=== PATIENT | male | born 1975 | race Caucasian/White ===

== ENCOUNTER 2017-06-28 11:14 | Emergency (ER) | payer SELFPAY ==
[2017-06-28 11:25] VITALS: BP 108/74; PULSE 80; TEMP 98.2; BMI 27.4
--- NOTE | 2017-06-28 11:50 | PDOC ---
History of Present Illness - General Chief Complaint: Head/Neck problem Stated Complaint: PAIN/ NECK, HEAD Time Seen by Provider: 06/28/17 11:28 History Source: Patient Exam Limitations: No Limitations - History of Present Illness Initial Comments: 06/28/17 11:57 Best Contact: unk PCP: PMD in [place] Pmhx: Depression, hypertension, epilepsy, chronic low back pain, chronic left- sided neck pain due to an accident in [place] in 2010 Pshx: None Allergies: Penicillin/rash FH: Father: 62 years old Prostate CA, HNP lumbar/ mother: 63 years old, stomach CA Social Hx: Ciarettes/ 0 Alcohol/ 0 Drugs/0 LMP:n/a 41-year-old male presents to the ER complaining of his left sided chronic neck pain. Patient states pain is described as 7/10 dull nonradiating intermittent discomfort without extremity numbness or tingling sensation, headache, dizziness , lightheadedness, back pains, chest pain, shortness of breath. Patient states his pain is similar to his chronic neck pain. Patient states he had an injection for pain 2 months ago while in [place] which helped tremendously. Patient refuses images. patient is present in the emergency department with his father. Past History - Past Medical History Allergies/Adverse Reactions: Allergies Allergy/AdvReac Type Severity Reaction Status Date / Time No Known Allergies Allergy Verified 06/28/17 11:54 Home Medications: Ambulatory Orders Naproxen [Naprosyn -] 250 mg PO ONCE 06/28/17 Phenytoin Na Extended [Dilantin -] 100 mg PO DAILY 06/28/17 COPD: No Other medical history: denies - Immunization History Immunization Up to Date: Yes - Suicide/Smoking/Psychosocial Hx Smoking History: Never smoked Information on smoking cessation initiated: No Hx Alcohol Use: No Drug/Substance Use Hx: No Review of Systems - Review of Systems Able to Perform ROS?: Yes Comments:: 06/28/17 11:51 CONSTITUTIONAL: Absent: fever, chills, diaphoresis, generalized weakness, malaise, loss of appetite HEENT: Absent: rhinorrhea, nasal congestion, throat pain, throat swelling, difficulty swallowing, mouth swelling, ear pain, eye pain, visual Changes CARDIOVASCULAR: Absent: chest pain, loss of consciousness, palpitations, irregular heart rate, peripheral edema RESPIRATORY: Absent: cough, shortness of breath, dyspnea with exertion, orthopnea, wheezing, stridor, hemoptysis GASTROINTESTINAL: Absent: abdominal pain, abdominal distension, nausea, vomiting, diarrhea, constipation, melena, hematochezia GENITOURINARY: Absent: dysuria, frequency, urgency, hesitancy, hematuria, flank pain, genital pain MUSCULOSKELETAL: +left sided neck pain Absent: myalgia, arthralgia, joint swelling SKIN: Absent: rash, itching, pallor HEMATOLOGIC/IMMUNOLOGIC: Absent: easy bleeding, easy bruising, lymphadenopathy, frequent infections ENDOCRINE: Absent: unexplained weight gain, unexplained weight loss, heat intolerance, cold intolerance NEUROLOGIC: Absent: headache, focal weakness or paresthesias, dizziness, unsteady gait, seizure, mental status changes, bladder or bowel incontinence PSYCHIATRIC: Absent: anxiety, depression, suicidal or homicidal ideation, hallucinations. Is the patient limited Botswanan proficient: No *Physical Exam - Vital Signs Last Vital Signs Temp Pulse Resp BP Pulse Ox 98.2 F 80 20 108/74 96 06/28/17 11:21 06/28/17 11:21 06/28/17 11:21 06/28/17 11:21 06/28/17 11:21 - Physical Exam Comments: 06/28/17 11:51 GENERAL: Well developed, well nourished. Awake and alert. No acute distress. HEENT: Normocephalic, atraumatic. PERRLA, EOMI. No conjunctival pallor. Sclera are non- icteric. Moist mucous membranes. Oropharynx is clear. NECK: Supple. Full ROM. No JVD. Carotid pulses 2+ and symmetric, without bruits. No thyromegaly. No lymphadenopathy. CARDIOVASCULAR: Regular rate and rhythm. No murmurs, rubs, or gallops. Distal pulses are 2+ and symmetric. PULMONARY: No evidence of respiratory distress. Lungs clear to auscultation bilaterally. No wheezing, rales or rhonchi. ABDOMINAL: Soft. Non-tender. Non-distended. No rebound or guarding. No organomegaly. Normoactive bowel sounds. MUSCULOSKELETAL +Left sided neck pain Negative Brudzinski sign, negative Kernig's sign Normal range of motion at all joints. No bony deformities or tenderness. No CVA tenderness. EXTREMITIES: No cyanosis. No clubbing. No edema. No calf tenderness. SKIN: Warm and dry. Normal capillary refill. No rashes. No jaundice. NEUROLOGICAL: Alert, awake, appropriate. Cranial nerves 2-12 intact. No deficits to light touch and temperature in face, upper extremities and lower extremities. No motor deficits in the in face, upper extremities and lower extremities. Normoreflexic in the upper and lower extremities. Normal speech. Toes are down- going bilaterally. Gait is normal without ataxia. Medical Decision Making - Medical Decision Making 06/28/17 12:01 41-year-old male with a chronic left-sided neck discomfort presents to the ER requesting for pain medication. Patient states he had a pain injection 2 months ago while in [place]. Physical was benign. No Brudzinski or Kernig's sign. No fever or chills, nausea or vomiting. Patient will get Toradol IM injection. MB discharge when he feels better. *DC/Admit/Observation/Transfer Diagnosis at time of Disposition: Chronic neck pain - Discharge Dispostion Disposition: HOME Condition at time of disposition: Stable Decision to Admit order: No - Referrals Referrals: Pawel Dye MD [Staff Physician] - Feliciano Campbell MD [Staff Physician] - - Patient Instructions Printed Discharge Instructions: DI for Chronic Neck Pain Additional Instructions: Ice; 20 mins on alternating with 20 mins off for 48 hours while awake. Rest Follow-up with the orthopedic surgeon or the neurosurgeon/Dr. Dye Follow up with your orthopedic surgeon or the one listed on the discharge form. Return to the ER for severe/persistent/worsening symptoms, extremity numbness/ tingling sensation. - Post Discharge Activity
[2017-06-28] MEDS ORDERED: KETOROLAC TROMETHAMINE 60 MG/2 ML VIAL IM ONE (11:51)
== END 2017-06-28 12:26 | disposition home or self-care (01) ==
LOC: JERFT 11:14
PROC: 3E0233Z Introduction of Anti-inflammatory into Muscle, Percutaneous Approach (ICD-10-PCS; principal; 2017-06-28)
DX: M54.2 Cervicalgia (principal); G89.29 Other chronic pain
CPT/HCPCS: 99281-25

== ENCOUNTER 2018-04-18 16:05 | Emergency (ER) | payer OTHER ==
--- NOTE | 2018-04-18 16:19 | PDOC ---
Rapid Medical Evaluation Time Seen by Provider: 04/18/18 16:18 Medical Evaluation: Allergies Allergy/AdvReac Type Severity Reaction Status Date / Time Penicillins Allergy Verified 04/18/18 16:18 04/18/18 16:19 I have performed a brief in-person evaluation of this patient. The patient presents with a chief complaint of: right sided BROWN x45 minutes Pertinent physical exam findings: left sided facial droop. -drift. +slurred speech I have ordered the following: stroke w/u The patient will proceed to the ED for further evaluation. 04/18/18 16:28 Discharge Disposition - Diagnosis Headache - Referrals - Patient Instructions - Post Discharge Activity
[2018-04-18 16:26] VITALS: BMI 24.3
[2018-04-18] MEDS ORDERED: SODIUM CHLORIDE 1,000 ML IV SCH (16:30)
--- NOTE | 2018-04-18 16:56 | PDOC ---
History of Present Illness - General History Source: Patient Exam Limitations: No Limitations - History of Present Illness Initial Comments: 04/18/18 19:25 The patient is a 42-year-old male, with a past medical history of HTN, HLD, seizures, who presents to the ED with RT temporal headache that began 1 hour prior to arrival. The patient describes the pain as intermittent, burning in sensation, 6/10 in severity, with radiation down the right side of his face. The patient denies experiencing these symptoms in the past. While in the ED, nurse noticed that his speech was muffled, but he reports that is his baseline. The patient denies any fevers, chills, nausea, vomiting, diarrhea, or abdominal pain. The patient denies any chest pain or shortness of breath. Denies any vision changes, lightheadedness, dizziness, strength or sensory changes. Denies any vision changes or photophobia. Allergies: Penicillins Social History: Current smoker. <Noelle Ellison - Last Filed: 04/18/18 19:39> - General History Source: Patient Exam Limitations: No Limitations <Ernestine Coleman - Last Filed: 04/21/18 02:34> - General Chief Complaint: CVA/TIA Stated Complaint: HEADACHE Time Seen by Provider: 04/18/18 16:18 Past History <Noelle Ellison - Last Filed: 04/18/18 19:39> - Past Medical History COPD: No DVT: No HTN: Yes Psychiatric Problems: Yes (DEPRESSION,ANXIETY) Seizures: Yes - Immunization History Immunization Up to Date: Yes - Suicide/Smoking/Psychosocial Hx Smoking History: Never smoked Have you smoked in the past 12 months: Yes Number of Cigarettes Smoked Daily: 5 'Breaking Loose' booklet given: 08/04/17 Hx Alcohol Use: No Drug/Substance Use Hx: No Substance Use Type: None <Ernestine Coleman - Last Filed: 04/21/18 02:34> - Past Medical History Allergies/Adverse Reactions: Allergies Allergy/AdvReac Type Severity Reaction Status Date / Time Penicillins Allergy Verified 04/20/18 20:42 shellfish derived Allergy Verified 04/20/18 20:42 Home Medications: Ambulatory Orders Naproxen [Naprosyn -] 250 mg PO ASDIR 06/28/17 Phenytoin Na Extended [Dilantin -] 100 mg PO TID 06/28/17 Lisinopril 10 mg PO DAILY 10/14/17 Prednisone [Prednisone 50 MG TABLETS] 50 mg PO DAILY #4 tablet 04/20/18 Ranitidine HCl [Zantac] 150 mg PO BID #20 tablet 04/20/18 Review of Systems - Review of Systems Able to Perform ROS?: Yes Comments:: 04/18/18 19:30 GENERAL/CONSTITUTIONAL: No fever or chills. No weakness. HEAD, EYES, EARS, NOSE AND THROAT: No change in vision. No ear pain or discharge. No sore throat. CARDIOVASCULAR: No chest pain or shortness of breath. RESPIRATORY: No cough, wheezing, or hemoptysis. GASTROINTESTINAL: No nausea, vomiting, diarrhea or constipation. GENITOURINARY: No dysuria, frequency, or change in urination. MUSCULOSKELETAL: No joint or muscle swelling or pain. No neck or back pain. SKIN: No rash NEUROLOGIC: (+)Headache. No vertigo, loss of consciousness, or change in strength/sensation. ENDOCRINE: No increased thirst. No abnormal weight change. HEMATOLOGIC/LYMPHATIC: No anemia, easy bleeding, or history of blood clots. ALLERGIC/IMMUNOLOGIC: No hives or skin allergy. <Noelle Ellison - Last Filed: 04/18/18 19:39> *Physical Exam - Vital Signs Last Vital Signs Temp Pulse Resp BP Pulse Ox 98.4 F 67 16 121/87 99 04/18/18 19:01 04/18/18 19:01 04/18/18 19:01 04/18/18 19:01 04/18/18 19:01 - Physical Exam Comments: 04/18/18 19:32 GENERAL: (+)Speech is muffled, but patient states that is his baseline.The patient is in no acute distress. HEAD: Normal with no signs of trauma. EYES: PERRLA, EOMI, sclera anicteric, conjunctiva clear. ENT: Ears normal, nares patent, oropharynx clear without exudates. Moist mucous membranes. NECK: Normal range of motion, supple without lymphadenopathy, JVD, or masses. LUNGS: Breath sounds equal, clear to auscultation bilaterally. No wheezes, and no crackles. HEART:Regular rate and rhythm, normal S1 and S2 without murmur, rub or gallop. ABDOMEN: Soft, nontender, normoactive bowel sounds. No guarding, no rebound. No masses palpable. EXTREMITIES: Normal range of motion, no edema. No clubbing or cyanosis. No erythema, or tenderness. NEUROLOGICAL: [id number] normal. See NIHSS MUSCULOSKELETAL: Back non-tender to palpation, no CVA tenderness SKIN: Warm, Dry, normal turgor, no rashes or lesions noted. <Noelle Ellison - Last Filed: 04/18/18 19:39> - Vital Signs Last Vital Signs Temp Pulse Resp BP Pulse Ox 97.6 F 96 H 18 134/92 98 04/18/18 16:18 04/18/18 16:18 04/18/18 16:18 04/18/18 16:18 04/18/18 16:18 <Ernestine Coleman - Last Filed: 04/21/18 02:34> NIH Stroke Scale - Last Known Well Date/Time & Onset Date Last Known Well: 04/18/18 Time Last Known Well: 04:30 - Initial Evaluation Level of consciousness: Alert Ask patient the month and their age: Answers both correctly Ask patient to open & close eyes; make fist and let go: Obeys both correctly Best gaze (horizontal eye movement): Normal Visual field testing: No visual field loss Facial paresis (Show teeth/raise eyebrows/close eyes tight): Normal symmetrical movement Motor Function: Left Arm: Normal Motor Function: Right Arm: Normal (extends arm 90 (or 45) degrees for 10 seconds without drift Motor Function: Left Leg: Normal (extends leg 30 degrees for 5 seconds without drift) Motor Function: Right Leg: Drift (Elevating leg causes back pain) Limb Ataxia: No ataxia Sensory(Use pinprick test arms,legs,trunk,face/side to side): Normal Best language (Describe picture, name items, read sentences): No Aphasia Dysarthria (read several words): Mild to moderate slurring of words Extinction and Inattention: No abnormality - Total Score NIH Stroke Scale Score: 2 <Ernestine Coleman - Last Filed: 04/21/18 02:34> tPA Exclusion Checklist 0-3hr - Time Elapsed Date last known well: 04/18/18 Time last known well: 14:30 Elaspsed time: 2 Day(s) and 12 Hour(s) and 3 Minutes - Thrombolytic Therapy Candidate Is the patient eligible for Thrombolytic Therapy?: No - Exclusion Criteria 0-3hr SBP greater than 185 or DBP greater than 110mmHg despite tx: No Recent IC/spinal surgery,head trauma or stroke w/in last 3mo: No Hx of previous IC hemorrhage, IC neoplasm, AVM or aneurysm: No Active internal bleeding: No Blding diathesis(low plt ct, inc PTT,INR>1.7 or use of NOAC): No Symptoms suggest subarachnoid hemorrhage: No CT demonstrates multilobar infarct(>1/3 cerebral hemiphere): No Arterial puncture at noncompressible site in previous 7 days: No Blood glucose concentration less than 50mg/dL (2.7mmol/L): No - Relative Exclusion Criteria 0-3h Life expectancy <1yr/severe co-morbid illness/G[employer] MECH[employer]IC on admit: No : No Patient/family refused: No Rapid improvement: Yes Stroke severity too mild: Yes Recent acute PA (w/in previous 3 months): No Seizure at onset with postictal residual neuro impairments: No Major surgery or serious trauma w/in previous 14 days: No Recent GI or hemorrhage (w/in previous 21 days): No - Ineligibility reason(s) Reasons No tPA given: See reason(s) noted above <Ernestine Coleman - Last Filed: 04/21/18 02:34> TIA Risk Factors - ABCD Score Age: Age < 60 Blood Pressure: SBP < 140 and DBP < 90 Clinical Features of TIA: Uni wk w/wo speech impair Duration: TIA duration = or > 60min Diabetes: No Total ABCD2 Score (0-7):: 4 <Ernestine Coleman - Last Filed: 04/21/18 02:34> Moderate Sedation - Procedure Monitoring Vital Signs: Procedure Monitoring Vital Signs Temperature 98.4 F 04/18/18 19:01 Pulse Rate 67 04/18/18 19:01 Respiratory Rate 16 04/18/18 19:01 Blood Pressure 121/87 04/18/18 19:01 O2 Sat by Pulse Oximetry (%) 99 04/18/18 19:01 <Noelle Ellison - Last Filed: 04/18/18 19:39> - Procedure Monitoring Vital Signs: Procedure Monitoring Vital Signs Temperature 97.6 F 04/18/18 16:18 Pulse Rate 96 H 04/18/18 16:18 Respiratory Rate 18 04/18/18 16:18 Blood Pressure 134/92 04/18/18 16:18 O2 Sat by Pulse Oximetry (%) 98 04/18/18 16:18 <Ernestine Coleman - Last Filed: 04/21/18 02:34> Critical Care Time/MDM Note Total Critical Care Time: 35 Critical Care Statement: The care of this patient involved high complexity decision making to prevent further life threatening deterioration of the patient 's condition and/or to evaluate & treat vital organ system(s) failure or risk of failure. - Medical Decision Making Note: 04/18/18 17:50 42 yo M presenting to the ER due to headache Pt has a h/o epilepsy, HTN, HLD Pt reported sudden onset of right sided headache HE was thought to have slurred speech but pt states his speech is at his baseline He denies weakness or numbness Code Hernandez called CT performed 04/18/18 18:07 CT is still not read Call placed to radiologist Will do: Labs are still pending Will treat headache and re assess Case reviewed with Dr. Roger Recommends observation for TIA work up 04/18/18 18:14 CT read as negative for acute intracranial pathology 04/18/18 18:34 EKG - NSR rate of 77 bpm, axis nml, intervals nml, no st elevation or depression I have discussed admission with this patient At this time, he is refusing this 04/18/18 19:00 Laboratory Tests 04/18/18 04/18/18 18:25 18:25 WBC 9.1 Hgb 16.4 Hct 47.0 Plt Count 244 INR 0.93 Note: The patient insists on leaving the emergency dept and is signing out against medical advice. The patient understands the risks and complications that may result from the refusal of medical care and admission which includes and permanent disability. The patient has the mental capacity of understanding the risks of refusing care and is capable of making an informed decision. The patient was instructed to return to the emergency department should he change his mind regarding medical care or should his condition worsen. The patient signed the Against Medical Advice form. <Ernestine Coleman - Last Filed: 04/21/18 02:34> *DC/Admit/Observation/Transfer - Attestations Scribe Attestion: 04/18/18 19:32 Documentation prepared by Noelle Ellison, acting as auditor medical claims for Ernestine Coleman MD. <ScotNoelle - Last Filed: 04/18/18 19:39> - Discharge Dispostion Decision to Admit order: No <Ernestine Coleman - Last Filed: 04/21/18 02:34> Diagnosis at time of Disposition: Headache Qualifiers: Headache type: unspecified Headache chronicity pattern: unspecified pattern Intractability: not intractable Qualified Code(s): R51 - Headache - Discharge Dispostion Disposition: AGAINST MEDICAL ADVICE Condition at time of disposition: Fair - Referrals Referrals: Anibal Roger MD [Staff Physician] - Sin Muro MD [Staff Physician] - Maude Iyer MD [Staff Physician] - - Patient Instructions Printed Discharge Instructions: DI for Migraine, DI for Transient Ischemic Attack Additional Instructions: YOU ARE LEAVING AGAINST MEDICAL ADVISE WE DO NOT WANT YOU TO GO HOME YOU MUST SEE YOUR PRIMARY CARE PHYSICIAN WITHIN 1 DAY PLEASE RETURN TO THE ER BECAUSE WE WOULD LIKE TO MANAGE AND CARE FOR YOU
[2018-04-18] MEDS ORDERED: ACETAMINOPHEN 1000 MG/100 ML VIAL (NON FORMULARY) IVPB ONE (17:10)
[2018-04-18] MEDS ORDERED: METOCLOPRAMIDE HCL INJECTION 10 MG/2 ML VIAL IVPUSH ONE (17:10)
[2018-04-18] MEDS ORDERED: ACETAMINOPHEN INJECTION 100 ML IVPB ONE (17:50)
[2018-04-18] MEDS ORDERED: METOCLOPRAMIDE HCL INJECTION 10 MG/2 ML VIAL ONE (17:50)
[2018-04-18 18:42] LABS: BASO % 0.3 % (0-2.0); EOS % 2.6 % (0-4.5); HEMOGLOBIN 16.4 GM/dL (11.7-16.9); LYMPH % 24.4 % (8-40); MCH 32.2 pg (25.7-33.7); MCHC 34.8 g/dl (32.0-35.9); MEAN CELL VOLUME 92.5 fl (80-96); MEAN PLT VOLUME 9.3 fl (7.5-11.1); MONO % 6.2 % (3.8-10.2); NEUT % 66.5 % (42.8-82.8); PLATELET COUNT 244 K/MM3 (134-434); RBC 5.09 M/mm3 (4.00-5.60); RDW 13.8 % (11.9-15.9); WHITE BLOOD COUNT 9.1 K/mm3 (4.0-10.0)
[2018-04-18 18:56] LABS: INR 0.93 (0.83-1.09)
[2018-04-18 19:02] VITALS: BP 121/87; PULSE 67; TEMP 98.4
[2018-04-18 19:26] LABS: ALBUMIN 4.4 g/dl (3.4-5.0); ALK PHOS 107 U/L (45-117); ANION GAP 2 MMOL/L (8-16); BILIRUBIN,TOTAL 0.2 mg/dL (0.2-1); BLOOD UREA NITROGEN 16 mg/dL (7-18); CALCIUM 9.9 mg/dL (8.5-10.1); CHLORIDE 106 mmol/L (98-107); CHOLESTEROL 201 mg/dL (50-200); CO2 31 mmol/L (21-32); CREATININE 0.8 mg/dL (0.55-1.3); GLUCOSE,RANDOM 80 mg/dL (74-106); HDL CHOLESTEROL 52 mg/dL (40-60); POTASSIUM 4.8 mmol/L (3.5-5.1); SGOT/AST 39 U/L (15-37); SGPT/ALT 77 U/L (13-61); SODIUM 139 mmol/L (136-145); TOT PROT 7.8 g/dl (6.4-8.2); TRIGLYCERIDES 121 mg/dL (0-150)
--- NOTE | 2018-04-19 10:51 | EKG ---
Test Reason : Blood Pressure : / mmHG Vent. Rate : 077 BPM Atrial Rate : 077 BPM P-R Int : 150 ms QRS Dur : 090 ms QT Int : 378 ms P-R-T Axes : 056 003 047 degrees QTc Int : 427 ms NORMAL SINUS RHYTHM POSSIBLE LEFT ATRIAL ENLARGEMENT BORDERLINE ECG WHEN COMPARED WITH ECG OF 04-AUG-2017 18:24, NO SIGNIFICANT CHANGE WAS FOUND Confirmed by SALOMON LOPEZ MD ([id number]) on 04/19/2018 10:51:01 AM Referred By: Confirmed By:SALOMON LOPEZ MD
== END 2018-04-18 19:45 | disposition left against medical advice (07) ==
LOC: JER 16:05
PROC: 3E0337Z Introduction of Electrolytic and Water Balance Substance into Peripheral Vein, Percutaneous Approach (ICD-10-PCS; principal; 2018-04-18)
PROC: 3E0337Z Introduction of Electrolytic and Water Balance Substance into Peripheral Vein, Percutaneous Approach (ICD-10-PCS; 2018-04-18)
PROC: 3E033GC Introduction of Other Therapeutic Substance into Peripheral Vein, Percutaneous Approach (ICD-10-PCS; 2018-04-18)
PROC: 3E033NZ Introduction of Analgesics, Hypnotics, Sedatives into Peripheral Vein, Percutaneous Approach (ICD-10-PCS; 2018-04-18)
DX: R51 Headache (principal); I10 Essential (primary) hypertension; E78.00 Pure hypercholesterolemia, unspecified; G40.909 Epilepsy, unspecified, not intractable, without status epilepticus
CPT/HCPCS: 36415; 70450-TC; 80053; 82465; 82550; 83718; 83721; 84478; 84484; 85025; 85610; 93005; 93010; 99284-25; J0131; J7030

== ENCOUNTER 2018-04-20 20:35 | Emergency (ER) | payer OTHER ==
[2018-04-20 20:42] VITALS: BP 136/94; PULSE 104; TEMP 97.5; BMI 24.3
[2018-04-20] MEDS ORDERED: predniSONE 20 MG TABLET (UD) PO ONE (22:12)
--- NOTE | 2018-04-20 22:12 | PDOC ---
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 Patient reports that he has no rash, no difficulty breathing, no swelling. Patient does have a fish ALLERGY. Past medical history of seizures, arthritis, hypertension Past History - Past Medical History Allergies/Adverse Reactions: Allergies Allergy/AdvReac Type Severity Reaction Status Date / Time Penicillins Allergy Verified 04/20/18 20:42 shellfish derived Allergy Verified 04/20/18 20:42 Home Medications: Ambulatory Orders Naproxen [Naprosyn -] 250 mg PO ASDIR 06/28/17 Phenytoin Na Extended [Dilantin -] 100 mg PO TID 06/28/17 Lisinopril 10 mg PO DAILY 10/14/17 Prednisone [Prednisone 50 MG TABLETS] 50 mg PO DAILY #4 tablet 04/20/18 Ranitidine HCl [Zantac] 150 mg PO BID #20 tablet 04/20/18 COPD: No DVT: No HTN: Yes Psychiatric Problems: Yes (DEPRESSION,ANXIETY) Seizures: Yes - Immunization History Immunization Up to Date: Yes - Suicide/Smoking/Psychosocial Hx Smoking History: Never smoked Have you smoked in the past 12 months: Yes Number of Cigarettes Smoked Daily: 5 'Breaking Loose' booklet given: 08/04/17 Hx Alcohol Use: No Drug/Substance Use Hx: No Substance Use Type: None Review of Systems - Review of Systems Able to Perform ROS?: Yes Is the patient limited Hebrew proficient: No Respiratory: No: Symptoms reported, See HPI, Cough, Orthopnea, Shortness of Breath, SOB with Exertion, SOB at Rest, Stridor, Wheezing, Productive cough, Hemoptysis, Other Musculoskeletal: No: Symptoms Reported, See HPI, Back Pain, Gout, Joint Pain, Joint Swelling, Muscle Pain, Muscle Weakness, Neck Pain, Joint Stiffness, Other Integumentary: Yes: Pruritus. No: Symptoms Reported, See HPI, Bruising, Change in Color, Change in Hair/Nails, Dryness, Erythema, Flushing, Lesions, Lumps, Pallor, Rash, Sweating, Other *Physical Exam - Vital Signs Last Vital Signs Temp Pulse Resp BP Pulse Ox 97.5 F L 104 H 18 136/94 97 04/20/18 20:38 04/20/18 20:38 04/20/18 20:38 04/20/18 20:38 04/20/18 20:38 - Physical Exam General Appearance: Yes: Appropriately Dressed HEENT: positive: Normal ENT Inspection Respiratory/Chest: positive: Lungs Clear, Normal Breath Sounds Cardiovascular: positive: Regular Rhythm, Regular Rate Gastrointestinal/Abdominal: positive: Normal Bowel Sounds, Soft Extremity: positive: Normal Capillary Refill, Normal Inspection, Normal Range of Motion Integumentary: positive: Normal Color, Dry, Warm. negative: Hives, Rash Neurologic: positive: Fully Oriented, Alert Moderate Sedation - Procedure Monitoring Vital Signs: Procedure Monitoring Vital Signs Temperature 97.5 F L 04/20/18 20:38 Pulse Rate 104 H 04/20/18 20:38 Respiratory Rate 18 04/20/18 20:38 Blood Pressure 136/94 04/20/18 20:38 O2 Sat by Pulse Oximetry (%) 97 04/20/18 20:38 Medical Decision Making - Medical Decision Making 04/20/18 22:51 allergic reaction P: benadryl prednisone zantac *DC/Admit/Observation/Transfer Diagnosis at time of Disposition: Allergic reaction Qualifiers: Encounter type: initial encounter Qualified Code(s): T78.40XA - Allergy, unspecified, initial encounter - Discharge Dispostion Disposition: HOME - Prescriptions Prescriptions: Prednisone [Prednisone 50 MG TABLETS] 50 mg PO DAILY #4 tablet Ranitidine HCl [Zantac] 150 mg PO BID #20 tablet - Referrals - Patient Instructions Printed Discharge Instructions: DI for General Allergic Reactions Additional Instructions: take prednisone tomorrow as prescribed follow up with your doctor as soon as possible return to the ER if symptoms worsen. - Post Discharge Activity Forms/Work/School Notes: Back to Work
[2018-04-20] MEDS ORDERED: RANITIDINE HCL 150 MG TABLET (FP) PO ONE (22:13)
[2018-04-20] MEDS ORDERED: RANITIDINE HCL 150 MG TABLET (FP) ONE (22:33)
[2018-04-20] MEDS ORDERED: predniSONE 20 MG TABLET (UD) ONE (22:34)
== END 2018-04-20 23:09 | disposition home or self-care (01) ==
LOC: JERFT 20:35
PROC: 3E023GC Introduction of Other Therapeutic Substance into Muscle, Percutaneous Approach (ICD-10-PCS; principal; 2018-04-20)
DX: T78.1XXA Other adverse food reactions, not elsewhere classified, initial encounter (principal); L29.8 Other pruritus; X58.XXXA Exposure to other specified factors, initial encounter; Z91.013 Allergy to seafood
CPT/HCPCS: 96372; 99281-25

== ENCOUNTER 2018-04-24 11:05 | Emergency (ER) | payer OTHER ==
[2018-04-24 11:50] VITALS: BP 146/82; PULSE 90; TEMP 97.7; BMI 24.3
--- NOTE | 2018-04-24 12:13 | PDOC ---
History of Present Illness - General Chief Complaint: Psychiatric Stated Complaint: RASH ALL OVER/ NERVOUSNESS Time Seen by Provider: 04/24/18 12:04 History Source: Patient Past History - Past Medical History Allergies/Adverse Reactions: Allergies Allergy/AdvReac Type Severity Reaction Status Date / Time Penicillins Allergy Verified 04/24/18 11:43 shellfish derived Allergy Verified 04/24/18 11:43 Home Medications: Ambulatory Orders Phenytoin Na Extended [Dilantin -] 100 mg PO TID 06/28/17 Lisinopril 10 mg PO DAILY 10/14/17 Prednisone [Prednisone 50 MG TABLETS] 50 mg PO DAILY #4 tablet 04/20/18 Ranitidine HCl [Zantac] 150 mg PO BID #20 tablet 04/20/18 Loratadine [Claritin] 10 mg PO DAILY #20 tablet 04/24/18 Permethrin 5% Topical Cream [Elimite -] 1 applic TP ONCE #1 tube 04/24/18 COPD: No DVT: No HTN: Yes Psychiatric Problems: Yes (DEPRESSION,ANXIETY) Seizures: Yes - Immunization History Immunization Up to Date: Yes - Suicide/Smoking/Psychosocial Hx Smoking History: Unknown if ever smoked Have you smoked in the past 12 months: Yes Number of Cigarettes Smoked Daily: 5 'Breaking Loose' booklet given: 08/04/17 Hx Alcohol Use: No Drug/Substance Use Hx: No Substance Use Type: None Review of Systems - Review of Systems Constitutional: No: Chills, Fever Respiratory: No: Shortness of Breath, Wheezing Cardiac (ROS): No: Chest Pain Integumentary: Yes: Pruritus, Rash Psychiatric: Yes: Anxiety *Physical Exam - Vital Signs Last Vital Signs Temp Pulse Resp BP Pulse Ox 97.7 F 90 18 146/82 99 04/24/18 11:45 04/24/18 11:45 04/24/18 11:45 04/24/18 11:45 04/24/18 11:45 - Physical Exam General Appearance: Yes: Appropriately Dressed. No: Apparent Distress HEENT: positive: Normal Voice Neck: positive: Supple Respiratory/Chest: negative: Respiratory Distress Integumentary: positive: Dry, Warm, Rash (scattered non-descript, erythematous pinpoint macules to dorsum of hand and face) Neurologic: positive: Fully Oriented, Alert, Normal Mood/Affect Moderate Sedation - Procedure Monitoring Vital Signs: Procedure Monitoring Vital Signs Temperature 97.7 F 04/24/18 11:45 Pulse Rate 90 04/24/18 11:45 Respiratory Rate 18 04/24/18 11:45 Blood Pressure 146/82 04/24/18 11:45 O2 Sat by Pulse Oximetry (%) 99 04/24/18 11:45 Medical Decision Making - Medical Decision Making 04/24/18 12:06 42 yo male, HTN, HLD, depression/anxiety, on meds but has no psychiatrist here w / planes. Patient states for the past 3 days, he's had pruritic rash to face and upper extremity. Seen in ED 5 days ago when pt was also complaining of pruritic rash after eating fish 2 days prior, but denied any fish allergy. Patient was sent home on prednisone and zantac. Took meds w/ no relief per patient. Also taking Benadryl with not much improvement. Denies any allergy or obvious inciting factors. No sick contacts or recent travel. Patient also complaining that he felt anxious last night. Has been taking his medication, but has been lost to follow-up with psychiatry. No depressed mood at this time and denies SI or HI See exam Rash ? allergic vs scabies, no e/o serious pathology S/p recent course of prednisone, zantac and benadryl w/ no relief -will dc / scabies and derm f/u Anxiety H/o same On meds but lost to f/u In NAD in ED Denies SI/HI -will dc w/ psych referral *DC/Admit/Observation/Transfer Diagnosis at time of Disposition: Dermatitis, Anxiety - Discharge Dispostion Disposition: HOME Condition at time of disposition: Good - Prescriptions Prescriptions: Loratadine [Claritin] 10 mg PO DAILY #20 tablet Permethrin 5% Topical Cream [Elimite -] 1 applic TP ONCE #1 tube - Referrals Referrals: Doreen Doll MD [Staff Physician] - Perico Fernandez MD [Staff Physician] - - Patient Instructions Printed Discharge Instructions: DI for Rash Additional Instructions: La causa de buenrostro erupcin no est georg[place] en lorne momento. Podra ser causado por ady reaccin alrgica o sarna. Usted fue tratado por ambos. Use medicamentos segn las indicaciones. Si los sntomas no se resuelven, landon un seguimiento con el Dr. Doll de dermatologa. Respecto a buenrostro ansiedad, por favor landon un seguimiento con el Dr. Fernandez de psiquiatra y contine con zeus medicamentos. Print Language: GRENADIAN - Post Discharge Activity
== END 2018-04-24 12:56 | disposition home or self-care (01) ==
LOC: JER 11:05
DX: L30.9 Dermatitis, unspecified (principal); B86 Scabies; F41.9 Anxiety disorder, unspecified
CPT/HCPCS: 99282-25

== ENCOUNTER 2018-09-01 13:59 | Emergency (ER) | payer OTHER | END 2018-09-01 15:16 | disposition home or self-care (01) | LOC: JERFT 13:59 ==

== ENCOUNTER 2018-11-06 10:01 | Emergency (ER) | payer OTHER ==
[2018-11-06 10:20] VITALS: BP 121/76; PULSE 86; TEMP 98.7; BMI 23.4
[2018-11-06] MEDS ORDERED: DEXAMETHASONE LIQUID 0.5 MG/5 ML PO ONE (11:44)
--- NOTE | 2018-11-06 11:49 | PDOC ---
History of Present Illness - General Chief Complaint: Pain Stated Complaint: PAIN Time Seen by Provider: 11/06/18 10:51 History Source: Patient Exam Limitations: Language Barrier ([employer] used. [id number]) Past History - Travel Traveled outside of the country in the last 30 days: No Close contact w/someone who was outside of country & ill: No - Past Medical History Allergies/Adverse Reactions: Allergies Allergy/AdvReac Type Severity Reaction Status Date / Time Penicillins Allergy Verified 11/06/18 10:20 shellfish derived Allergy Verified 11/06/18 10:20 Home Medications: Ambulatory Orders Phenytoin Na Extended [Dilantin -] 100 mg PO TID 06/28/17 Lisinopril 10 mg PO DAILY 10/14/17 Loratadine [Claritin] 10 mg PO DAILY #20 tablet 04/24/18 Cyclobenzaprine HCl [Flexeril -] 10 mg PO HS #10 tablet 09/01/18 Methylprednisolone [Medrol Dose Michael] 4 mg PO ASDIR #21 tablet 09/01/18 Cyclobenzaprine HCl [Flexeril -] 10 mg PO HS #10 tablet 11/06/18 Methylprednisolone [Medrol Dose Michael] 4 mg PO ASDIR #21 tablet 11/06/18 COPD: No DVT: No HTN: Yes Psychiatric Problems: Yes (DEPRESSION,ANXIETY) Seizures: Yes - Immunization History Immunization Up to Date: Yes - Psycho Social/Smoking Cessation Hx Smoking History: Current every day smoker Have you smoked in the past 12 months: Yes Number of Cigarettes Smoked Daily: 12 Information on smoking cessation initiated: Yes 'Breaking Loose' booklet given: 08/04/17 Hx Alcohol Use: No Drug/Substance Use Hx: No Substance Use Type: None Review of Systems - Review of Systems Able to Perform ROS?: Yes Comments:: 11/06/18 11:42 CONSTITUTIONAL: Absent: fever, chills, diaphoresis, generalized weakness, malaise, loss of appetite HEENT: Absent: rhinorrhea, nasal congestion, throat pain, throat swelling, difficulty swallowing, mouth swelling, ear pain, eye pain, visual Changes CARDIOVASCULAR: Absent: chest pain, loss of consciousness, palpitations, irregular heart rate, peripheral edema RESPIRATORY: Absent: cough, shortness of breath, dyspnea with exertion, orthopnea, wheezing, stridor, hemoptysis GASTROINTESTINAL: Absent: abdominal pain, abdominal distension, nausea, vomiting, diarrhea, constipation, melena, hematochezia GENITOURINARY: Absent: dysuria, frequency, urgency, hesitancy, hematuria, flank pain, genital pain MUSCULOSKELETAL: Present: L arm pain Absent: myalgia, arthralgia, joint swelling SKIN: Absent: rash, itching, pallor HEMATOLOGIC/IMMUNOLOGIC: Absent: easy bleeding, easy bruising, lymphadenopathy, frequent infections ENDOCRINE: Absent: unexplained weight gain, unexplained weight loss, heat intolerance, cold intolerance NEUROLOGIC: Absent: headache, focal weakness or paresthesias, dizziness, unsteady gait, seizure, mental status changes, bladder or bowel incontinence PSYCHIATRIC: Absent: anxiety, depression, suicidal or homicidal ideation, hallucinations. Is the patient limited Romanian proficient: No *Physical Exam - Vital Signs Last Vital Signs Temp Pulse Resp BP Pulse Ox 98.7 F 86 17 121/76 95 11/06/18 10:16 11/06/18 10:16 11/06/18 10:16 11/06/18 10:16 11/06/18 10:16 - Physical Exam Comments: 11/06/18 11:43 GENERAL: The patient is awake, alert, and fully oriented, in no acute distress. HEAD: Normal with no signs of trauma. EYES: Pupils equal, round and reactive to light, extraocular movements intact, sclera anicteric, conjunctiva clear. EXTREMITIES: Pain with passive range of motion of the L arm after 90 degrees in all directions. (-) drop arm test. No TTP of the cervical paraspinous muscles. PMS intact of the L arm. Normal range of motion at all other joints, no edema. NEUROLOGICAL: Normal speech, normal gait. PSYCH: Normal mood, normal affect. SKIN: Warm, Dry, normal turgor, no rashes or lesions noted. Medical Decision Making - Medical Decision Making 11/06/18 16:13 The patient is a 43-year-old male who presents to the ER today for left arm pain. He states that his symptoms of been going on for 2 weeks. He states that he went to an urgent care 3 days ago where they did x-rays and they were negative. He was prescribed Toradol at that time. He states he is still having pain in the left arm and he can't move it. Denies fevers, chills, neck pain, numbness and tingling and weakness to the affected extremity. Patient is right- hand dominant. A/P: Shoulder impingement On exam pain with active and passive range of motion past 90. Negative drop arm test. Patient denies trauma or falling. He reports negative x-rays done 3 days ago. Patient seen with similar symptoms 2 months ago in the ER, possible cervical radiculopathy versus shoulder impingement. Given today symptoms with no neck pain more likely shoulder impingement Patient placed in sling, steroids and Flexeril given Discharge home with sling and orthopedic follow-up. Patient understands the plan and that he needs to follow up with orthopedics for further management of his symptoms. I discussed the physical exam findings, ancillary test results and final diagnoses with the patient. I answered all of the patient's questions. The patient was satisfied with the care received and felt comfortable with the discharge plan and treatment plan. The Patient agrees to follow up with the primary care physician/specialist within 24-72 hours. Return precautions were given. Discharge - Discharge Information Problems reviewed: Yes Clinical Impression/Diagnosis: Left arm pain Condition: Stable Disposition: HOME - Admission No - Additional Discharge Information Prescriptions: Cyclobenzaprine HCl [Flexeril -] 10 mg PO HS #10 tablet Methylprednisolone [Medrol Dose Michael] 4 mg PO ASDIR #21 tablet - Follow up/Referral Referrals: Israel Taylor [Primary Care Provider] - Yousif Arce MD [Staff Physician] - - Patient Discharge Instructions Patient Printed Discharge Instructions: DI for Arm Pain Additional Instructions: You were evaluated for your arm pain today I suspect you may have a nerve impingement in your shoulder Please follow up with orthopedics for further evaluation this week. (Dr. Arce ) Take the steroids as directed starting tomorrow Take the flexeril at night. Do not drink or drive after taking this medication as it may make you drowsy Return to the ER for any new or worsening symptoms Usted fue evaluado por buenrostro dolor en el brazo hoy Sospecho que puede tener ady afectacin nerviosa en el hombro Gerald un seguimiento con ortopedia para ady evaluacin adicional esta semana. ( Dr. Arce) [place] los esteroides segn las indicaciones a partir de maana. Lois el flexeril por la noche. No daina ni maneje despus de karyn lorne medicamento, ya que puede causar somnolencia. Regrese a la anyi de emergencias por cualquier sntoma nuevo o que empeore Print Language: TAMAZIGHT - Post Discharge Activity
[2018-11-06] MEDS ORDERED: DEXAMETHASONE SOD PHOSPHATE 10 MG/1 ML VIAL ONE (11:50)
== END 2018-11-06 11:59 | disposition home or self-care (01) ==
LOC: JERFT 10:01
DX: M79.602 Pain in left arm (principal); I10 Essential (primary) hypertension; G40.909 Epilepsy, unspecified, not intractable, without status epilepticus; F41.9 Anxiety disorder, unspecified; F32.9 Major depressive disorder, single episode, unspecified; F17.210 Nicotine dependence, cigarettes, uncomplicated; Z88.0 Allergy status to penicillin; Z91.013 Allergy to seafood
CPT/HCPCS: 99282-25

== ENCOUNTER 2019-02-24 18:37 | Emergency (ER) | payer OTHER ==
[2019-02-24 18:44] VITALS: TEMP 97.9; BMI 22.8
--- NOTE | 2019-02-24 19:18 | PDOC ---
History of Present Illness - General Chief Complaint: Weakness Stated Complaint: LEFT SIDE WEEKNESS Exam Limitations: Language Barrier ([employer] used) - History of Present Illness Initial Comments: The pt is a 43M w/ a history of seizure d/o, HTN, HLD, anxiety, and chronic LUE/ BLE pain who presents for evaluation of 2-3 days of dizziness and 'skin hotness' . He describes the dizziness at lightheadedness that is constant and non- positional. It is associated with a BROWN that is global, gradual onset, waxing/ waning, moderately relieved by OTC meds, and not exacerbated by anything he can identify. He states that his whole body feels hot but is unable to further qualify the sensation. He denies every having felt this before. He denies fevers, vision changes, N/V/C/D, chest pain, trouble breathing, dysuria, hematuria He reports being compliant with his medications at home but does not recall what they all are. Of note, his left lower facial droop is reported as chronic and he has seen no change in the last 2 days 02/24/19 19:55 Past History - Past Medical History Allergies/Adverse Reactions: Allergies Allergy/AdvReac Type Severity Reaction Status Date / Time Penicillins Allergy Verified 02/24/19 18:43 shellfish derived Allergy Verified 02/24/19 18:43 Home Medications: Ambulatory Orders Phenytoin Na Extended [Dilantin -] 100 mg PO TID 06/28/17 Lisinopril 10 mg PO DAILY 10/14/17 Loratadine [Claritin] 10 mg PO DAILY #20 tablet 04/24/18 Cyclobenzaprine HCl [Flexeril -] 10 mg PO HS #10 tablet 09/01/18 Methylprednisolone [Medrol Dose Michael] 4 mg PO ASDIR #21 tablet 09/01/18 Cyclobenzaprine HCl [Flexeril -] 10 mg PO HS #10 tablet 11/06/18 Methylprednisolone [Medrol Dose Michael] 4 mg PO ASDIR #21 tablet 11/06/18 Meclizine HCl [Antivert -] 25 mg PO QID #28 tablet 02/24/19 COPD: No DVT: No HTN: Yes Psychiatric Problems: Yes (DEPRESSION,ANXIETY) Seizures: Yes - Immunization History Immunization Up to Date: Yes - Psycho Social/Smoking Cessation Hx Smoking History: Current every day smoker Have you smoked in the past 12 months: Yes Number of Cigarettes Smoked Daily: 12 Information on smoking cessation initiated: No 'Breaking Loose' booklet given: 08/04/17 Hx Alcohol Use: No Drug/Substance Use Hx: No Substance Use Type: None Review of Systems - Review of Systems Able to Perform ROS?: Yes Comments:: GENERAL/CONSTITUTIONAL: No fever or chills HEAD, EYES, EARS, NOSE AND THROAT: No change in vision. No change in hearing. No sore throat CARDIOVASCULAR: No chest pain or shortness of breath RESPIRATORY: Denies cough, hemoptysis GASTROINTESTINAL: No nausea, vomiting, diarrhea or constipation GENITOURINARY: No dysuria, frequency, or change in urination MUSCULOSKELETAL: +Acute on chronic diffuse extremity pain SKIN: No rash NEUROLOGIC: No loss of consciousness, or change in strength/sensation ENDOCRINE: No increased thirst. No abnormal weight change HEMATOLOGIC/LYMPHATIC: No anemia, easy bleeding, or history of blood clots ALLERGIC/IMMUNOLOGIC: No hives or skin allergy 02/24/19 19:18 Is the patient limited Hebrew proficient: Yes *Physical Exam - Vital Signs Last Vital Signs Temp Pulse Resp BP Pulse Ox 97.9 F 101 H 20 167/107 H 99 02/24/19 18:39 02/24/19 18:39 02/24/19 18:39 02/24/19 18:39 02/24/19 18:39 - Physical Exam GENERAL: Awake, alert, and oriented to person/place/time, in no acute distress HEAD: No signs of trauma, normoc ephalic, atraumatic EYES: PERRLA, EOMI, sclera anicteric, conjunctiva clear ENT: Hearing grossly normal, nares patent, oropharynx clear without exudates. Moist mucosa LUNGS: No distress, speaks in full sentences, clear to auscultation bilaterally HEART: Regular rate and rhythm, normal S1 and S2, no murmurs appreciated, peripheral pulses normal and equal bilaterally ABDOMEN: Soft, nontender, normoactive bowel sounds. No guarding, no rebound EXTREMITIES: Normal inspection, Normal range of motion, no edema. No clubbing or cyanosis NEUROLOGICAL: Cranial nerves II through XII grossly intact. Left lower facial droop, normal annunciation and word finding, sensation to light touch intact throughout and equal b/l face/extremities, strength intact throughout, pt unable to straight leg raise b/l legs 2/2 pain that is worse today than usual SKIN: Warm, Dry 02/24/19 19:18 ED Treatment Course - LABORATORY CBC & Chemistry Diagram: 02/24/19 20:10 02/24/19 20:10 - ADDITIONAL ORDERS Additional order review: Laboratory Results 02/24/19 18:49 POC Glucometer 96 02/24/19 18:49 POC Glucometer 96 - RADIOLOGY Radiograph Interpretation: THIS IS A PRELIMINARY REPORT FROM [facility] EXAM: CT head without contrast DATE OF EXAM: 2019-02-24 21:46:36 FINDINGS: The brain parenchyma demonstrates normal attenuation without focal mass or mass effect. The ventricles are not enlarged. No acute intracranial hemorrhage or acute infarction The visualized aspect of the paranasal sinuses and mastoid air cells are unremarkable. No acute fracture 02/24/19 22:19 Medical Decision Making - Medical Decision Making The pt is a 43M w/ a history of seizure d/o, HTN, HLD, anxiety, and chronic LUE/ BLE pain who presents for evaluation of 2-3 days of dizziness and 'skin hotness' . ED Course CMP, CBC, Trop I ECG CXR CT head w/o Ofirmev, IVF, Benadryl, Reglan 02/24/19 20:02 ECG w/ NSR; HR 96; QTc 462; no TWI; evidence of LVH; no REBECCA; abn ECG CXR w/o acute pathology CT head w/o acute pathology Labs and imaging discussed w/ patient Symptoms likely related to viral illness Pt feels improved s/p meds Plan for D/C w/ PCP f/u Discharge instructions and return precautions given Patient in agreement and verbalized understanding Dispo: Home 02/24/19 22:19 Discharge - Discharge Information Problems reviewed: Yes Clinical Impression/Diagnosis: Lightheadedness, Viral syndrome Condition: Stable Disposition: HOME - Admission No - Additional Discharge Information Prescriptions: Meclizine HCl [Antivert -] 25 mg PO QID #28 tablet - Follow up/Referral Referrals: Israel Taylor [Primary Care Provider] - - Patient Discharge Instructions Patient Printed Discharge Instructions: DI for Viral Syndrome Additional Instructions: You were seen in the Emergency Department for evaluation of cough. Your symptoms are likely related to a virus and will likely self resolve within a week. Review the handout provided at discharge. Be sure to frequently wash your hands. Avoid close contact with young children, elderly, or weak immune system. Follow up with your primary care doctor within a week. Return to the Emergency Department if you develop fevers despite Tylenol/ Ibuprofen use, lethargy, confusion, inability to tolerate fluids, vomiting, blood in stool, worsening symptoms, or any new/concerning symptoms. Lo vieron en el departamento de emergencias para evaluar la tos. Es probable que zeus sntomas estn relacionados con un virus y es probable que se resuelvan en ady semana. Revise el folleto proporcionado al yaneth. Asegrese de lavarse las perez con frecuencia. Evite el contacto cercano con nios pequeos, ancianos o un sistema inmunitario dbil. Gerald un seguimiento con buenrostro mdico de atencin primaria dentro de ady semana. Regrese al Departamento de Emergencias si desarrolla fiebre a pesar del uso de Tylenol / Ibuprofeno, letargo, confusin, incapacidad para tolerar lquidos, vmitos, hanna en las heces, empeoramiento de los sntomas o cualquier sntoma nuevo o preocupante. Print Language: MONGOLIAN - Post Discharge Activity Work/Back to School Note: Back to Work
[2019-02-24] MEDS ORDERED: METOCLOPRAMIDE HCL INJECTION 10 MG/2 ML VIAL IVPB ONE (19:52)
[2019-02-24] MEDS ORDERED: ACETAMINOPHEN 1000 MG/100 ML VIAL (NON FORMULARY) IVPB ONE (19:52)
[2019-02-24] MEDS ORDERED: SODIUM CHLORIDE 0.9% 500 ML INFUS.BAG IV ONE (19:52)
--- NOTE | 2019-02-24 20:05 | PDOC ---
Attending Attestation - Resident Resident Name: Memo Duncan - ED Attending Attestation I have performed the following: I have examined & evaluated the patient, The case was reviewed & discussed with the resident, I agree w/resident's findings & plan - HPI HPI: 02/24/19 21:26 Pt comes with dizziness that is strong. Pt has positional dizziness. He has never had this in the past. He has nystagmus when he looks to the left and the right. He states that he is eating normally and though not sleeping well, he has no N/V/D and he has no systemic symptoms. He is compliant with all his meds. He takes his BP meds and his seizure meds as he is supposed to. He states that he has had a dry mouth recently - Physicial Exam PE: 02/24/19 21:28 Normal neuro exam Pt has no fever; subjectively warm and flushed Pt has clear lungs and normal heart [id number] Pt has no abd pain and no flank pain Rash on his chest and samll red 1mm macules sparse on legs and arms; no rash on the palms - Medical Decision Making 02/24/19 21:25 Labs are normal; LFTs are elevated. This is likely due to viral illness, which is causing the small red rash on chest and neck and that is resulting in [place] Palsy and causing vertiginous symptoms. 02/24/19 22:16 Patient Name: CAMILO CHAPMAN THIS IS A PRELIMINARY REPORT FROM [facility] EXAM: CT head without contrast IMAGES: 234 DATE OF EXAM: 2019-02-24 21:46:36 REASON FOR EXAM: Dizziness COMPARISON: None. FINDINGS: The brain parenchyma demonstrates normal attenuation without focal mass or mass effect. The ventricles are not enlarged. No acute intracranial hemorrhage or acute infarction. The visualized aspect of the paranasal sinuses and mastoid air cells are unremarkable. No acute fracture. 02/24/19 22:23 Pt will be sent home with meclizine He is feeling better
[2019-02-24] MEDS ORDERED: METOCLOPRAMIDE HCL INJECTION 10 MG/2 ML VIAL ONE (20:23)
[2019-02-24] MEDS ORDERED: ACETAMINOPHEN INJECTION 100 ML IVPB ONE (20:23)
[2019-02-24 20:29] LABS: BASO % 0.6 % (0-2.0); EOS % 1.6 % (0-4.5); HEMOGLOBIN 15.7 GM/dL (11.7-16.9); LYMPH % 22.1 % (8-40); MCH 30.9 pg (25.7-33.7); MCHC 34.2 g/dl (32.0-35.9); MEAN CELL VOLUME 90.4 fl (80-96); MEAN PLT VOLUME 9.3 fl (7.5-11.1); MONO % 5.8 % (3.8-10.2); NEUT % 69.9 % (42.8-82.8); PLATELET COUNT 222 K/MM3 (134-434); RBC 5.09 M/mm3 (4.00-5.60); RDW 13.7 % (11.9-15.9); WHITE BLOOD COUNT 8.6 K/mm3 (4.0-10.0)
[2019-02-24] MEDS ORDERED: LISINOPRIL 20 MG TABLET (FP) PO ONE (20:37)
[2019-02-24] MEDS ORDERED: FOLIC ACID INJECTION - 1 MG, THIAMINE HCL 100 MG, MULTIVIT INJECTION ADULT 10 ML in SOD... IVPB ONE (20:38)
[2019-02-24] MEDS ORDERED: MECLIZINE HCL 25 MG TABLET (FP) PO ONE (20:39)
[2019-02-24] MEDS ORDERED: MECLIZINE HCL 25 MG TABLET (FP) ONE (20:48)
[2019-02-24] MEDS ORDERED: LISINOPRIL 20 MG TABLET (FP) ONE (20:48)
[2019-02-24 21:04] LABS: ALBUMIN 4.2 g/dl (3.4-5.0); BILIRUBIN,TOTAL 0.8 mg/dL (0.2-1); BLOOD UREA NITROGEN 20.1 mg/dL (7-18); CALCIUM 9.3 mg/dL (8.5-10.1); CREATININE 0.9 mg/dL (0.55-1.3); POTASSIUM 4.4 mmol/L (3.5-5.1); TOT PROT 7.2 g/dl (6.4-8.2)
[2019-02-25 01:29] VITALS: BP 131/94; PULSE 91
--- NOTE | 2019-02-25 09:59 | EKG ---
Test Reason : Blood Pressure : / mmHG Vent. Rate : 096 BPM Atrial Rate : 096 BPM P-R Int : 172 ms QRS Dur : 102 ms QT Int : 366 ms P-R-T Axes : 050 -15 052 degrees QTc Int : 462 ms NORMAL SINUS RHYTHM POSSIBLE LEFT ATRIAL ENLARGEMENT LEFT VENTRICULAR HYPERTROPHY ABNORMAL ECG WHEN COMPARED WITH ECG OF 18-APR-2018 18:13, NO SIGNIFICANT CHANGE WAS FOUND Confirmed by ZAC GOODE MD ([id number]) on 02/25/2019 9:58:54 AM Referred By: Confirmed By:ZAC GOODE MD
== END 2019-02-24 23:15 | disposition home or self-care (01) ==
LOC: JER 18:37
PROC: 3E033NZ Introduction of Analgesics, Hypnotics, Sedatives into Peripheral Vein, Percutaneous Approach (ICD-10-PCS; principal; 2019-02-24)
PROC: 3E033GC Introduction of Other Therapeutic Substance into Peripheral Vein, Percutaneous Approach (ICD-10-PCS; 2019-02-24)
PROC: 3E033GC Introduction of Other Therapeutic Substance into Peripheral Vein, Percutaneous Approach (ICD-10-PCS; 2019-02-24)
DX: B34.9 Viral infection, unspecified (principal); I10 Essential (primary) hypertension; E78.5 Hyperlipidemia, unspecified; F41.8 Other specified anxiety disorders; F32.9 Major depressive disorder, single episode, unspecified; F17.210 Nicotine dependence, cigarettes, uncomplicated; Z88.0 Allergy status to penicillin; Z91.013 Allergy to seafood
CPT/HCPCS: 36415; 70450-TC; 71045-TC-FY; 80053; 82962; 84484; 85025; 93005; 93010; 96374; 96375; 99283-25; J0131; J7030

== ENCOUNTER 2019-02-27 14:30 | Inpatient (IN) | payer OTHER ==
--- NOTE | 2019-02-27 14:53 | PDOC ---
NIH Stroke Scale - Initial Evaluation Level of consciousness: Alert Ask patient the month and their age: Answers both correctly Ask patient to open & close eyes; make fist and let go: Obeys both correctly Best gaze (horizontal eye movement): Normal Visual field testing: No visual field loss Facial paresis (Show teeth/raise eyebrows/close eyes tight): Minor paralysis ( flattened nasolabial fold, asymmetry on smiling) Motor Function: Left Arm: Normal Motor Function: Right Arm: Normal (extends arm 90 (or 45) degrees for 10 seconds without drift Motor Function: Left Leg: Normal (extends leg 30 degrees for 5 seconds without drift) Motor Function: Right Leg: Normal (extends leg 30 degrees for 5 seconds without drift) Limb Ataxia: No ataxia Sensory(Use pinprick test arms,legs,trunk,face/side to side): Normal Best language (Describe picture, name items, read sentences): No Aphasia Dysarthria (read several words): Mild to moderate slurring of words Extinction and Inattention: No abnormality - Total Score NIH Stroke Scale Score: 2
[2019-02-27] MEDS ORDERED: levETIRAcetam 500 MG/5 ML INJECTION VIAL IVPB ONE ×2 (15:02→15:08)
--- NOTE | 2019-02-27 15:06 | PDOC ---
History of Present Illness - General Chief Complaint: Seizure Stated Complaint: R/O STROKE Time Seen by Provider: 02/27/19 15:00 - History of Present Illness Initial Comments: The pt is a 43M w/ a history of seizure d/o, HTN, HLD, anxiety, and chronic LUE/ BLE pain who presents for evaluation s/p seizure at approximately 1410 that lasted for about 5 minutes. The pt's father reports general tonic-clonic features that resolved spontaneously. He states that he has been compliant with his medications. He denies fevers/chills, vision changes, chest pain, trouble breathing, abdominal pain, N/V/V/D, dysuria, hematuria, or changes in sensation. 02/27/19 15:05 NIH Stroke Scale - Last Known Well Date/Time & Onset Date Last Known Well: 02/27/19 Time Last Known Well: 12:00 - Initial Evaluation Level of consciousness: Alert Ask patient the month and their age: Answers both correctly Ask patient to open & close eyes; make fist and let go: Obeys both correctly Best gaze (horizontal eye movement): Normal Visual field testing: No visual field loss Facial paresis (Show teeth/raise eyebrows/close eyes tight): Partial paralysis ( total or near paralysis of lower face) (reported as chronic) Motor Function: Left Arm: Normal Motor Function: Right Arm: Normal (extends arm 90 (or 45) degrees for 10 seconds without drift Motor Function: Left Leg: Normal (extends leg 30 degrees for 5 seconds without drift) Motor Function: Right Leg: Normal (extends leg 30 degrees for 5 seconds without drift) Limb Ataxia: No ataxia Sensory(Use pinprick test arms,legs,trunk,face/side to side): Normal Best language (Describe picture, name items, read sentences): No Aphasia Dysarthria (read several words): Mild to moderate slurring of words Extinction and Inattention: No abnormality - Total Score NIH Stroke Scale Score: 3 Past History - Past Medical History Allergies/Adverse Reactions: Allergies Allergy/AdvReac Type Severity Reaction Status Date / Time Penicillins Allergy Verified 02/24/19 18:43 shellfish derived Allergy Verified 02/24/19 18:43 Home Medications: Ambulatory Orders Phenytoin Na Extended [Dilantin -] 100 mg PO TID 06/28/17 Lisinopril 10 mg PO DAILY 10/14/17 Loratadine [Claritin] 10 mg PO DAILY #20 tablet 04/24/18 Methylprednisolone [Medrol Dose Michael] 4 mg PO ASDIR #21 tablet 09/01/18 Cyclobenzaprine HCl [Flexeril -] 10 mg PO HS #10 tablet 11/06/18 Meclizine HCl [Antivert -] 25 mg PO QID #28 tablet 02/24/19 COPD: No DVT: No HTN: Yes Psychiatric Problems: Yes (DEPRESSION,ANXIETY) Seizures: Yes - Immunization History Immunization Up to Date: Yes - Psycho Social/Smoking Cessation Hx Smoking History: Current every day smoker Have you smoked in the past 12 months: Yes Number of Cigarettes Smoked Daily: 12 'Breaking Loose' booklet given: 08/04/17 Hx Alcohol Use: No Drug/Substance Use Hx: No Substance Use Type: None Review of Systems - Review of Systems Able to Perform ROS?: Yes Comments:: GENERAL/CONSTITUTIONAL: No fever or chills. No weakness HEAD, EYES, EARS, NOSE AND THROAT: No change in vision. No change in hearing. No sore throat CARDIOVASCULAR: No chest pain or shortness of breath RESPIRATORY: Denies cough, hemoptysis GASTROINTESTINAL: No nausea, vomiting, diarrhea or constipation GENITOURINARY: No dysuria, frequency, or change in urination MUSCULOSKELETAL: No joint or muscle swelling or pain. No neck or back pain SKIN: No rash NEUROLOGIC: No headache, vertigo, or change in strength/sensation ENDOCRINE: No increased thirst. No abnormal weight change HEMATOLOGIC/LYMPHATIC: No anemia, easy bleeding, or history of blood clots ALLERGIC/IMMUNOLOGIC: No hives or skin allergy 02/27/19 15:05 Is the patient limited Gabonese proficient: No *Physical Exam - Physical Exam GENERAL: Awake, alert, and oriented to person/place/time, in no acute distress HEAD: No signs of trauma, normoc ephalic, atraumatic EYES: PERRLA, EOMI, sclera anicteric, conjunctiva clear ENT: Hearing grossly normal, nares patent, oropharynx clear without exudates. No uvular deviation. Moist mucosa LUNGS: No distress, speaks in full sentences, clear to auscultation bilaterally HEART: Regular rate and rhythm, normal S1 and S2, no murmurs appreciated, peripheral pulses normal and equal bilaterally ABDOMEN: Soft, nontender, normoactive bowel sounds. No guarding, no rebound EXTREMITIES: Normal inspection, Normal range of motion, no edema. No clubbing or cyanosis NEUROLOGICAL: Cranial nerves II through XII grossly intact. Sensation to light touch intact throughout; no drift in any extremities SKIN: Warm, Dry 02/27/19 15:08 ED Treatment Course - LABORATORY CBC & Chemistry Diagram: 02/27/19 14:50 02/27/19 14:50 - RADIOLOGY Radiograph Interpretation: CT/HEAD CT (STROKE) Rule out stroke CT scan of the brain without intravenous contrast. No prior is available for comparison There is minimal volume loss in the high convexity which is nonspecific. The ventricles are slightly prominent. Basal cisterns appear unremarkable. No mass lesion, gross acute infarct or intracranial hemorrhage are identified. Visualized paranasal sinuses and mastoid air cells are well-aerated. The calvarium is intact. Impression: No evidence of a focal intracranial lesion or hemorrhage seen. No gross acute infarct is identified. Case discussed with Dr. Camp, emergency room attending physician 02/27/19 15:20 Medical Decision Making - Medical Decision Making The pt is a 43M w/ a history of seizure d/o, HTN, HLD, anxiety, and chronic LUE/ BLE pain who presents for evaluation s/p witnessed seizure at approximately 1410 that lasted for about 5 minutes. Pt also reports intermittent tongue ' feeling weird' and worse slurring of speech. Concern for TIA/CVA, breakthrough seizure, Joel's paralysis ED Course CT head w/o acute pathology No leukocytosis No anemia Lytes unremarkable LFTs wnl Trop I neg Keppra 1g IV once given Consult order placed for Cardiology Plan for admission for further evaluation of new onset neurological symptoms Discharge - Discharge Information Problems reviewed: Yes Clinical Impression/Diagnosis: Seizure, TIA (transient ischemic attack) Condition: Stable - Admission Yes - Follow up/Referral Referrals: Israel Taylor [Primary Care Provider] - - Patient Discharge Instructions - Post Discharge Activity
[2019-02-27] MEDS: SODIUM CHLORIDE 1,000 ML IV SCH (15:16)
[2019-02-27 15:42] LABS: BASO % 1.1 % (0-2.0); EOS % 4.2 % (0-4.5); HEMATOCRIT 46.6 % (35.4-49); HEMOGLOBIN 15.8 GM/dL (11.7-16.9); LYMPH % 29.9 % (8-40); MCHC 33.8 g/dl (32.0-35.9); MEAN CELL VOLUME 91.6 fl (80-96); MONO % 6.7 % (3.8-10.2); NEUT % 58.1 % (42.8-82.8); PLATELET COUNT 226 K/MM3 (134-434); RBC 5.09 M/mm3 (4.00-5.60); RDW 13.8 % (11.9-15.9); WHITE BLOOD COUNT 6.1 K/mm3 (4.0-10.0)
[2019-02-27 15:54] LABS: INR 0.94 (0.83-1.09); PROTHROMBIN TIME (PATIENT) 11.1 SEC (9.7-13.0)
[2019-02-27 15:57] LABS: ACTIVATED PTT 29.4 SECONDS (25.2-36.5)
--- NOTE | 2019-02-27 15:57 | EKG ---
Test Reason : Blood Pressure : / mmHG Vent. Rate : 090 BPM Atrial Rate : 090 BPM P-R Int : 158 ms QRS Dur : 098 ms QT Int : 354 ms P-R-T Axes : 052 -15 046 degrees QTc Int : 433 ms NORMAL SINUS RHYTHM POSSIBLE LEFT ATRIAL ENLARGEMENT BORDERLINE ECG WHEN COMPARED WITH ECG OF 24-FEB-2019 18:55, NO SIGNIFICANT CHANGE WAS FOUND Confirmed by MEGAN MORELAND MD ([id number]) on 02/27/2019 3:56:38 PM Referred By: Confirmed By:MEGAN MORELAND MD
[2019-02-27 16:14] LABS: ALK PHOS 116 U/L (45-117); ANION GAP 3 MMOL/L (8-16); BILIRUBIN,TOTAL 0.4 mg/dL (0.2-1); BLOOD UREA NITROGEN 12.5 mg/dL (7-18); CALCIUM 9.4 mg/dL (8.5-10.1); CHLORIDE 104 mmol/L (98-107); CHOLESTEROL 197 mg/dL (50-200); CO2 31 mmol/L (21-32); CREATININE 0.9 mg/dL (0.55-1.3); GLUCOSE,RANDOM 83 mg/dL (74-106); HDL CHOLESTEROL 63 mg/dL (40-60); LDL CHOLESTEROL (ONLY SJRH) 103 mg/dL (5-100); POTASSIUM 4.7 mmol/L (3.5-5.1); SGOT/AST 25 U/L (15-37); SGPT/ALT 47 U/L (13-61); SODIUM 138 mmol/L (136-145); TOT PROT 7.3 g/dl (6.4-8.2); TRIGLYCERIDES 111 mg/dL (0-150)
--- NOTE | 2019-02-27 17:04 | PDOC ---
Documentation entered by Lacy Vergara SCRIBE, acting as scribe for Ernestine Coleman MD. Ernestine Coleman MD: This documentation has been prepared by the Ursula chester Adrianna, SCRIBE, under my direction and personally reviewed by me in its entirety. I confirm that the documentation accurately reflects all work, treatment, procedures, and medical decision making performed by me. Attending Attestation - Resident Resident Name: Memo Duncan - ED Attending Attestation I have performed the following: I have examined & evaluated the patient, The case was reviewed & discussed with the resident, I agree w/resident's findings & plan, Exceptions are as noted - HPI HPI: The patient is a 43 year old male, with a significant PMH of seizure disorder, HTN, HLD, anxiety, and chronic LUE/BLE pain, who presents to the ED for evaluation s/p seizure. Patient had a general tonic clonic seizure earlier today , which lasted for approximately 5 minutes before it self-resolved. This is his second seizure in two days. He has been compliant with his daily medications. Patient reports that his tongue felt like it fell asleep, he is struggling to speak, his eyes feel heavy, and his voice does not sound normal, but notes this sensation is progressively getting better. While in the ED, patient reports feeling dizzy, his face is hot, and his LLE is weak. Allergies: Shellfish, penicillins Surgical History: None reported Social History: Current everyday smoker (12 cigarettes per day). PCP: Dr. Taylor - Physicial Exam PE: 02/27/19 17:00 GENERAL: Awake, alert, and oriented to person/place/time, in no acute distress HEAD: No signs of trauma, normocephalic, atraumatic EYES: PERRLA, EOMI, sclera anicteric, conjunctiva clear ENT: Hearing grossly normal, nares patent, oropharynx clear without exudates. No uvular deviation. Moist mucosa LUNGS: No distress, speaks in full sentences, clear to auscultation bilaterally HEART: Regular rate and rhythm, normal S1 and S2, no murmurs appreciated, peripheral pulses normal and equal bilaterally ABDOMEN: Soft, nontender, normoactive bowel sounds. EXTREMITIES: Normal inspection, Normal range of motion, no edema. NEUROLOGICAL: Cranial nerves II through XII grossly intact, there is left-sided flattening of the nasolabial fold Patient speech seems slurred to me Sensation to light touch intact throughout; no drift in any extremities, patient is able to hold both hands and both legs up against gravity with no difficulty SKIN: Warm, Dry 02/27/19 17:00 02/27/19 17:03 - Medical Decision Making 02/27/19 17:01 43-year-old male presenting to the emergency department status post seizure at approximately 1410 that lasted for about 5 minutes. He is noted to have slurring of his speech, and reports that his tongue feels weird Differential diagnosis: TIA/CVA, breakthrough seizure, Joel's paralysis EKG: Normal sinus rhythm, rate of 90 bpm, axis is normal, intervals are normal, no ST elevation or depression 02/27/19 17:01 Laboratory Tests 02/27/19 02/27/19 02/27/19 14:50 14:50 14:50 WBC 6.1 Hgb 15.8 Hct 46.6 Plt Count 226 BUN 12.5 Creatinine 0.9 Creatine Kinase 100 Troponin I < 0.02 Phenytoin 31.5 Clinical impression: Recurrent seizure 02/27/19 17:[address] head w/o acute pathology No leukocytosis No anemia Lytes unremarkable LFTs wnl Trop I neg Keppra 1g IV once given Consult order placed for Cardiology Plan for admission for further evaluation of new onset neurological symptoms
[2019-02-27 17:54] LABS: PH,URINE 6.5 (5.0-8.0); URINE APPEARANCE CLEAR; URINE BILIRUBIN NEGATIVE (NEGATIVE); URINE COLOR YELLOW; URINE GLUCOSE (UA) NEGATIVE (NEGATIVE); URINE KETONE NEGATIVE (NEGATIVE); URINE LEUK ESTERASE NEGATIVE (NEGATIVE); URINE NITRITE NEGATIVE (NEGATIVE); URINE PROTEIN NEGATIVE (NEGATIVE); URINE UROBILINOGEN 0.2 mg/dL (0.2-1.0)
--- NOTE | 2019-02-27 18:40 | CON.NEURO ---
Consult - Alcohol/Substance Use Hx Alcohol Use: No - Smoking History Smoking history: Current every day smoker Have you smoked in the past 12 months: Yes Aproximately how many cigarettes per day: 12 Home Medications - Allergies Allergies/Adverse Reactions: Allergies Allergy/AdvReac Type Severity Reaction Status Date / Time Penicillins Allergy Verified 02/24/19 18:43 shellfish derived Allergy Verified 02/24/19 18:43 - Home Medications Home Medications: Ambulatory Orders Phenytoin Na Extended [Dilantin -] 100 mg PO TID 06/28/17 Lisinopril 10 mg PO DAILY 10/14/17 Loratadine [Claritin] 10 mg PO DAILY #20 tablet 04/24/18 Methylprednisolone [Medrol Dose Michael] 4 mg PO ASDIR #21 tablet 09/01/18 Cyclobenzaprine HCl [Flexeril -] 10 mg PO HS #10 tablet 11/06/18 Meclizine HCl [Antivert -] 25 mg PO QID #28 tablet 02/24/19 Physical Exam-Neuro Vital Signs: Vital Signs Temperature 98.7 F 02/27/19 14:35 Pulse Rate 91 H 02/27/19 14:35 Respiratory Rate 20 02/27/19 14:35 Blood Pressure 146/89 02/27/19 14:35 O2 Sat by Pulse Oximetry (%) 98 02/27/19 14:35 Labs: CBC, BMP 02/27/19 14:50 02/27/19 14:50 Assessment/Plan CC breakthrough seizure HPI 43 year old male history of htn, anxiety, hld, epilepsy. HE has been on dilantin 100 mg po tid and had generalzied tonic clonic seizure and resolved. [place]ilo has ct head it is unremarkable. He has left facial palsy. he denies any other focal neurologica symptoms. his dilantin level were 31. His nih score was 3 at admission PMH as above Allergies/Adverse Reactions: Allergies Allergy/AdvReac Type Severity Reaction Status Date / Time Penicillins Allergy Verified 02/24/19 18:43 shellfish derived Allergy Verified 02/24/19 18:43 Home Medications: Phenytoin Na Extended [Dilantin -] 100 mg PO TID 06/28/17 Lisinopril 10 mg PO DAILY 10/14/17 Loratadine [Claritin] 10 mg PO DAILY #20 tablet 04/24/18 Methylprednisolone [Medrol Dose Michael] 4 mg PO ASDIR #21 tablet 09/01/18 Cyclobenzaprine HCl [Flexeril -] 10 mg PO HS #10 tablet 11/06/18 Meclizine HCl [Antivert -] 25 mg PO QID #28 tablet 02/24/19 NEUROLOGICAL EXAMINATION Alert follow command, speech is normal vss, neck is supple left facial palsy moving all extremity sensation is normal reflex are normal ct head is unremarkable mri of brain is pending eeg is pending Assessment/Plan 43 year old male history of htn, anxiety, hld, epilepsy. He came with breakthrough seizure and left facial palsy, ct head is uremarkable. dialntin level is therapeutic Plan: mri of brain and eeg add keppra 750 mg po bid seizure precaution speech therapy and pt Thanking you so much Anibal Roger MD
[2019-02-27] MEDS ORDERED: PHENYTOIN NA EXTENDED 100 MG CAPSULE (FP) PO SCH (22:00)
[2019-02-27] MEDS ORDERED: MECLIZINE HCL 25 MG TABLET (FP) PO PRN (22:00)
[2019-02-27] MEDS: levETIRAcetam 500 MG TABLET (FP) PO SCH (22:32)
[2019-02-27] MEDS: HEPARIN NA (PORCINE) 5,000 UNITS/ML 1ML VIAL SQ SCH (22:32)
[2019-02-27 23:48] VITALS: BMI 22.9
[2019-02-28] MEDS ORDERED: PHENYTOIN NA EXTENDED 100 MG CAPSULE (FP) PO SCH (06:00)
[2019-02-28 07:47] LABS: BASO % 0.9 % (0-2.0); EOS % 3.9 % (0-4.5); HEMATOCRIT 41.7 % (35.4-49); HEMOGLOBIN 14.2 GM/dL (11.7-16.9); LYMPH % 39.7 % (8-40); MCH 31.1 pg (25.7-33.7); MCHC 34.1 g/dl (32.0-35.9); MEAN CELL VOLUME 91.3 fl (80-96); MEAN PLT VOLUME 9.5 fl (7.5-11.1); MONO % 6.6 % (3.8-10.2); NEUT % 48.9 % (42.8-82.8); PLATELET COUNT 211 K/MM3 (134-434); RBC 4.57 M/mm3 (4.00-5.60); RDW 13.3 % (11.9-15.9); WHITE BLOOD COUNT 6.4 K/mm3 (4.0-10.0)
--- NOTE | 2019-02-28 08:24 | HP ---
Admitting History and Physical - Admission History of Present Illness: 43M w/ a history of seizure d/o, HTN, HLD, anxiety, and chronic LUE/BLE pain who presents for evaluation s/p seizure that lasted for about 5 minutes. The pt 's father reported to ER general tonic-clonic features that resolved spontaneously. He states that he has been compliant with his medications. - Past Medical History SANDER HAND: Yes: Seizure Cardiovascular: Yes: HTN, Hyperlipdemia - Smoking History Smoking history: Current every day smoker Have you smoked in the past 12 months: Yes Aproximately how many cigarettes per day: 3 - Alcohol/Substance Use Hx Alcohol Use: No Home Medications - Allergies Allergies/Adverse Reactions: Allergies Allergy/AdvReac Type Severity Reaction Status Date / Time Penicillins Allergy Verified 02/24/19 18:43 shellfish derived Allergy Verified 02/24/19 18:43 - Home Medications Home Medications: Ambulatory Orders Phenytoin Na Extended [Dilantin -] 100 mg PO TID 06/28/17 Lisinopril 10 mg PO DAILY 10/14/17 Loratadine [Claritin] 10 mg PO DAILY #20 tablet 04/24/18 Methylprednisolone [Medrol Dose Michael] 4 mg PO ASDIR #21 tablet 09/01/18 Cyclobenzaprine HCl [Flexeril -] 10 mg PO HS #10 tablet 11/06/18 Meclizine HCl [Antivert -] 25 mg PO QID #28 tablet 02/24/19 Review of Systems - Review of Systems Constitutional: reports: Weakness Cardiovascular: reports: No Symptoms Respiratory: reports: No Symptoms Gastrointestinal: reports: No Symptoms Neurological: reports: Pre-Existing Deficit, Seizure, Weakness Physical Examination Vital Signs: Vital Signs Temperature 97.4 F L 02/28/19 06:00 Pulse Rate 76 02/28/19 06:00 Respiratory Rate 17 02/28/19 06:00 Blood Pressure 130/87 02/28/19 06:00 O2 Sat by Pulse Oximetry (%) 95 02/27/19 22:00 Cardiovascular: Yes: Regular Rate and Rhythm Respiratory: Yes: Regular, CTA Bilaterally Gastrointestinal: Yes: Normal Bowel Sounds, Soft. No: Tenderness Neurological: Yes: Alert, Oriented Problem List - Problems (1) Seizure Assessment/Plan: may have had a breakthrough seizur contine with meds mri neuro Code(s): R56.9 - UNSPECIFIED CONVULSIONS (2) HTN (hypertension) Assessment/Plan: monitor Vital Signs Period Temp Pulse Resp BP Sys/Paredes Pulse Ox Last 24 Hr 97.4 F-98.7 F 76-94 17-20 108-146/63-89 95-98 controlled on lisinopril Code(s): I10 - ESSENTIAL (PRIMARY) HYPERTENSION (3) TIA (transient ischemic attack) Code(s): G45.9 - TRANSIENT CEREBRAL ISCHEMIC ATTACK, UNSPECIFIED (4) Anxiety Assessment/Plan: observe Code(s): F41.9 - ANXIETY DISORDER, UNSPECIFIED
[2019-02-28 08:29] LABS: ALBUMIN 3.3 g/dl (3.4-5.0); ALK PHOS 98 U/L (45-117); ANION GAP 5 MMOL/L (8-16); BILIRUBIN,TOTAL 0.5 mg/dL (0.2-1); BLOOD UREA NITROGEN 16.9 mg/dL (7-18); CALCIUM 8.8 mg/dL (8.5-10.1); CHLORIDE 108 mmol/L (98-107); CHOLESTEROL 162 mg/dL (50-200); CO2 25 mmol/L (21-32); CREATININE 0.7 mg/dL (0.55-1.3); GLUCOSE,RANDOM 81 mg/dL (74-106); HDL CHOLESTEROL 43 mg/dL (40-60); LDL CHOLESTEROL (ONLY SJRH) 91 mg/dL (5-100); POTASSIUM 4.3 mmol/L (3.5-5.1); SGOT/AST 28 U/L (15-37); SGPT/ALT 46 U/L (13-61); SODIUM 138 mmol/L (136-145); TOT PROT 5.9 g/dl (6.4-8.2); TRIGLYCERIDES 167 mg/dL (0-150)
[2019-02-28] MEDS ORDERED: FLU VACCINE QUAD 60 MCG/0.5 ML (MDV 19-20) IM ONE (10:00)
[2019-02-28] MEDS ORDERED: PNEUMOC 13-VAL CONJ-DIP CRM/PF 0.5 ML DISP.SYRIN IM ONE (10:00)
--- NOTE | 2019-02-28 11:02 | CON.CARD ---
Consult - History of Present Illness Chief Complaint: Possible stroke History of Present Illness: 43M w/ a history Epilepsy, HTN, HLD, anxiety, and chronic LUE/BLE pain who presents for evaluation s/p seizure, tonic-clonic features that resolved spontaneously. And noted to have a facial droop. He states that he has been compliant with his medications. He denies fevers/chills, vision changes, chest pain, trouble breathing, abdominal pain, N/V/V/D, dysuria, hematuria, or changes in sensation. ECG NSR no ST T changes MICHAEL negative. CT negative MRI planned. - History Source History Provided By: Patient, Medical Record - Alcohol/Substance Use Hx Alcohol Use: No - Smoking History Smoking history: Current every day smoker Have you smoked in the past 12 months: Yes Aproximately how many cigarettes per day: 3 Home Medications - Allergies Allergies/Adverse Reactions: Allergies Allergy/AdvReac Type Severity Reaction Status Date / Time Penicillins Allergy Verified 02/24/19 18:43 shellfish derived Allergy Verified 02/24/19 18:43 - Home Medications Home Medications: Ambulatory Orders Phenytoin Na Extended [Dilantin -] 100 mg PO TID 06/28/17 Lisinopril 10 mg PO DAILY 10/14/17 Loratadine [Claritin] 10 mg PO DAILY #20 tablet 04/24/18 Methylprednisolone [Medrol Dose Michael] 4 mg PO ASDIR #21 tablet 09/01/18 Cyclobenzaprine HCl [Flexeril -] 10 mg PO HS #10 tablet 11/06/18 Meclizine HCl [Antivert -] 25 mg PO QID #28 tablet 02/24/19 Review of Systems - Review of Systems Constitutional: reports: No Symptoms Eyes: reports: No Symptoms HENT: reports: No Symptoms Neck: reports: No Symptoms Cardiovascular: reports: No Symptoms Respiratory: reports: No Symptoms Gastrointestinal: reports: No Symptoms Genitourinary: reports: No Symptoms Breasts: reports: No Symptoms Reported Musculoskeletal: reports: No Symptoms Vital Signs: Vital Signs Temperature 97.4 F L 02/28/19 10:00 Pulse Rate 85 02/28/19 10:00 Respiratory Rate 18 02/28/19 10:00 Blood Pressure 131/85 02/28/19 10:00 O2 Sat by Pulse Oximetry (%) 96 02/28/19 09:00 Constitutional: Yes: Well Nourished, No Distress, Calm Eyes: Yes: Conjunctiva Clear, EOM Intact HENT: Yes: Atraumatic, Normocephalic Neck: Yes: Supple, Trachea Midline Respiratory: Yes: Regular, CTA Bilaterally Gastrointestinal: Yes: Normal Bowel Sounds, Soft Cardiovascular: Yes: Regular Rate and Rhythm JVD: No Carotid Bruit: No PMI: Non-Displaced Heart Sounds: Yes: S1, S2 Murmur: No: Systolic Murmur, Diastolic Murmur Edema: No Peripheral Pulses WNL: Yes - Other Data Labs, Other Data: CBC, BMP 02/28/19 05:50 02/28/19 05:50 INR, PTT INR 0.94 (0.83-1.09) 02/27/19 14:50 Troponin, BNP 02/27/19 02/28/19 14:50 05:50 Troponin I < 0.02 < 0.02 Troponin, BNP 02/27/19 02/28/19 14:50 05:50 Troponin I < 0.02 < 0.02 Imaging - Results Chest X-ray: Report Reviewed EKG: Image Reviewed Problem List - Problems (1) HTN (hypertension) Code(s): I10 - ESSENTIAL (PRIMARY) HYPERTENSION Assessment/Plan 43M w/ a history Epilepsy, HTN, HLD, anxiety, and chronic LUE/BLE pain who presents after a seizure and noted to have a facial droop. Will obtain Echocardiogram BP is controlled.
[2019-02-28] MEDS: LISINOPRIL 10 MG TABLET (FP) PO SCH (11:06)
[2019-02-28] MEDS: LORATADINE 10 MG TABLET PO SCH (11:06)
[2019-02-28] MEDS: levETIRAcetam 500 MG TABLET (FP) PO SCH (11:06)
[2019-02-28] MEDS: HEPARIN NA (PORCINE) 5,000 UNITS/ML 1ML VIAL SQ SCH ×2 (11:06→23:37)
--- NOTE | 2019-02-28 12:05 | CONSULT ---
Admitting History and Physical - Primary Care Physician PCP: Suresh Estrada - Admission History of Present Illness: Per EMR- 43M w/ a history Epilepsy, HTN, HLD, anxiety, and chronic LUE/BLE pain who presents for evaluation s/p seizure, tonic-clonic features that resolved spontaneously and left facial droop. He states that he has been compliant with his medications. Selected Entries 02/27/19 02/27/19 02/28/19 14:35 22:00 02:00 Temperature 98.7 F 97.4 F L 97.8 F 02/28/19 02/28/19 06:00 10:00 Temperature 97.4 F L 97.4 F L Laboratory Tests 02/27/19 02/28/19 14:50 05:50 WBC 6.1 6.4 History Source: Patient Limitations to Obtaining History: No Limitations, Language Barrier - Smoking History Smoking history: Current every day smoker Have you smoked in the past 12 months: Yes Aproximately how many cigarettes per day: 3 - Alcohol/Substance Use Hx Alcohol Use: No History - Admission Reason For Visit: TIA - Diagnostics CT Scan: Report Reviewed Modified Barium Swallow: Pending - General Mental Status: Alert and Oriented, Awake and Alert, Able to Follow Commands Attention: Intact Ability to Follow Directions: Excellent Head/Neck Control: WFL - Hearing Hearing: Functional Hearing: Normal Hearing Aide: No With Patient: No Speech Evaluation - Communication Primary Language: MAURITIAN Communication: Yes: Dysarthria Oral Expression Ability: Yes: Mild Impairment - Speech Production Able to Make Needs Known: Yes: WNL Intelligibility: Yes: WNL - Speech Characteristics Voice Loudness: Normal Voice Pitch: Yes: Normal Voice Phonatory-based Quality: Yes: Normal Speech Pattern: Impaired Speech Clarity: < 100% Nasal Resonance: Normal Articulation: Yes: Imprecise (mild) Rate of Speech: Too Slow (mild) - Language/Auditory Comprehension Follows: Yes: 2 Stage Simple Commands Observation: Able to respond to yes/no queries: Yes, Yes/No Confusion: No, Comprehends Conversational Speech: Yes - Language/Verbal Expression Able to Respond to Simple Queries: Yes: WNL Able to Communicate Wants and Needs: Yes: WNL Functional Communication Status: Yes: WNL - Memory/Perception lobsterman Memory: Yes: WNL Short Term Memory: Yes: WNL - Swallow Evaluation/Bedside Assessment Current Nutritional Intake: Regular, Thin Liquids Oral Secretions: Yes: WFL Dentition: Yes: Adequate Facial Symmetry at Rest: Facial Droop Left Facial Movement: Controlled Pucker Lips: Normal Smile: Normal Lingual Movement: Symmetric Lingual Speed of Movement: Reduced Lingual Movement Strgth Against Opposition: Normal Lingual Movement Characteristics: Normal Laryngeal Elevation: WFL Laryngeal Movement: Able to Palpate Rate of Intake: WFL Bolus Size: WFL Labial Seal: WFL Chewing: WFL Oral Prep Time: WFL A-P Transit: WFL Pocketing: None Timing of Swallow: WFL Coughing/Throat Clear: No Change in Voice: No Recommendations - Speech Evaluation, Impression/Plan Impression: Pt with mild left facial weakness and mild Dysarthria with imprecise articulatory rate and precision. Pt reports that his speech is different than baseline. Swallowing intact overtly. Pending MRI - Dysphagia Impressions/Plan Swallowing Skills: [facility] Dysphagia Impressions: No Impairment *Silent aspiration: cannot be R/O at bedside Dysphagia Treatment Plan: OOB for meals, OOB for 1 h. after meals Recommendations: Other (Monitor PO tolerance) - Recommendations Diet Consistency: Regular Medication Administration: Whole with water Liquids: Thin Liquids
[2019-02-28] MEDS ORDERED: ACETAMINOPHEN 325 MG TABLET (FP) PO PRN (13:24)
--- NOTE | 2019-02-28 14:46 | PN ---
Progress Note (short form) - Note Progress Note: 43 year old male history of htn, anxiety, hld, epilepsy. HE has been on dilantin 100 mg po tid and had generalzied tonic clonic seizure and resolved. [place] has ct head it is unremarkable. He has left facial palsy. he denies any other focal neurologica symptoms. his dilantin level were 31. 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 He was given keppra and no seizure overnight. NEUROLOGICAL EXAMINATION Alert follow command, speech is normal vss, neck is supple left facial palsy moving all extremity sensation is normal reflex are normal ct head is unremarkable mri of brain is pending eeg is pending Assessment/Plan 43 year old male history of htn, anxiety, hld, epilepsy. He came with breakthrough seizure and left facial palsy, ct head is uremarkable. dialntin level is therapeutic 2. [place] palsy Plan: mri of brain and eeg continue keppra 750 mg po bid and dilntin seizure precaution speech therapy and pt after mri of brain is unremarkable, he can be discharged home from neurological point of view Thanking you so much Anibal Roger MD
[2019-02-28] MEDS: SODIUM CHLORIDE 1,000 ML IV SCH (15:37)
--- NOTE | 2019-02-28 16:50 | ECHO ---
Name: JELENA CHAPMAN Exam:Adult Echocardiogram Study Date: 02/28/2019 03:38 PM Age: 43 yrs Height: 68 in Weight: 151 lb BSA: 1.8 m2 MMode/2D Measurements & Calculations IVSd: 1.1 cm Ao root diam: 2.5 cm LVIDd: 3.2 cm LA dimension: 2.8 cm LVIDs: 2.3 cm ACS: 1.9 cm LVPWd: 1.4 cm EDV(Teich): 39.7 ml LVOT diam: 2.0 cm ESV(Teich): 18.0 ml RV S Gus: 11.5 cm/sec Doppler Measurements & Calculations MV E max gus: 48.5 cm/sec MV A max gus: 52.9 cm/sec MV dec slope: 272.7 cm/sec2 MV E/A: 0.92 Ao V2 max: 93.8 cm/sec LV V1 max P.6 mmHg Ao max P.5 mmHg LV V1 mean P.7 mmHg Ao V2 mean: 70.5 cm/sec LV V1 max: 80.5 cm/sec Ao mean P.2 mmHg LV V1 mean: 61.9 cm/sec Ao V2 VTI: 17.4 cm LV V1 VTI: 14.6 cm GAMALIEL(I,D): 2.6 cm2 GAMALIEL(V,D): 2.7 cm2 MR max gus: 269.1 cm/sec SV(LVOT): 45.8 ml MR max P.0 mmHg TR max gus: 247.3 cm/sec PA V2 max: 63.5 cm/sec TR max P.9 mmHg PA max P.6 mmHg Med Peak E' Gus: 6.6 cm/sec Med E/e': 7.3 Lat Peak E' Gus: 7.0 cm/sec Lat E/e': 7.0 Procedure A complete two-dimensional transthoracic echocardiogram was performed (2D, M-mode, Doppler and color flow Doppler). Left Ventricle The left ventricular size, thickness and function are normal. The left ventricular ejection fraction is normal. Ejection Fraction = 60-65%. The left ventricular wall motion is normal. Right Ventricle The right ventricle is normal in size and function. Atria Normal left and right atrial size and function. Mitral Valve There is no mitral regurgitation noted. Tricuspid Valve There is trace tricuspid regurgitation. There was insufficient TR detected to calculate RV systolic p ressure. Aortic Valve The aortic valve is trileaflet. No hemodynamically significant valvular aortic stenosis. No aortic regurgitation is present. Pulmonic Valve There is no pulmonic valvular regurgitation. Great Vessels The aortic root is normal size. Pericardium/Pleura There is no pericardial effusion. Interpretation Summary The left ventricular size, thickness and function are normal The right ventricle is normal in size and function. There is trace tricuspid regurgitation. MD Esau Shipman 02/28/2019 04:49 PM
[2019-02-28] MEDS ORDERED: FAMOTIDINE 20 MG/50 ML IVPB 20 MG/50 ML MG IVPB ONE (23:16)
[2019-02-28] MEDS: PHENYTOIN NA EXTENDED 100 MG CAPSULE (FP) PO SCH (23:37)
--- NOTE | 2019-03-01 01:10 | HOSP ---
Subjective - Review of Symptoms Events since last encounter: hospitalist encounter Notified by RN that the patient reports having epigastric CP. 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 Patient reports having sharp epigastric pain about 1 hr ago. PS 4-5/10. Patient denies SOB, palpitations, diaphoresis, belching or flatulence. On exam CP is non-reproducible, lungs- CTAB, heart- RRR , s1s2. Assessment: This is a 43 y/o man with a PMHx of Seizure disorder, HTN, HLD,Anxiety, chronic LUE/BL pain admitted for Seizure Activity. Plan: EKG stat Troponin I stat Pepcid IVPB x1 now Cardiovascular: Yes: Chest Pain Gastrointestinal: Yes: Abdominal Pain Physical Examination Vital Signs: Vital Signs Temperature 97.8 F 02/28/19 21:00 Pulse Rate 85 02/28/19 22:30 Respiratory Rate 19 02/28/19 22:30 Blood Pressure 108/74 02/28/19 22:30 O2 Sat by Pulse Oximetry (%) 98 02/28/19 22:30 Constitutional: Yes: No Distress, Calm, Thin Eyes: Yes: WNL, Conjunctiva Clear, EOM Intact, PERRL HENT: Yes: WNL, Atraumatic, Normocephalic Neck: Yes: WNL, Supple, Trachea Midline Cardiovascular: Yes: WNL, Regular Rate and Rhythm, S1, S2 Respiratory: Yes: WNL, Regular, CTA Bilaterally Gastrointestinal: Yes: Normal Bowel Sounds, Soft, Tenderness, Epigastrium ...Rectal Exam: Yes: Deferred Renal/: Yes: WNL Breast(s): Yes: WNL Musculoskeletal: Yes: WNL Extremities: Yes: WNL Edema: No Peripheral Pulses WNL: Yes Integumentary: Yes: WNL Neurological: Yes: Alert, Oriented, Cran Nerves II-XII Intact, Pre-Existing Deficit ...Motor Strength: WNL Psychiatric: Yes: WNL, Alert, Oriented Labs: CBC, BMP 02/28/19 05:50 02/28/19 05:50 Hospitalist Encounter Outcome: EKG- NSR, non-specific T wave abnormality. Prolonged QT Troponin I - nl Patient improved with Pepcid, now requesting sleep aid Melatonin ordered.
[2019-03-01] MEDS ORDERED: MELATONIN 5 MG TABLETS PO ONE (02:37)
[2019-03-01 09:08] LABS: BASO % 0.6 % (0-2.0); EOS % 3.3 % (0-4.5); HEMATOCRIT 45.1 % (35.4-49); HEMOGLOBIN 15.2 GM/dL (11.7-16.9); LYMPH % 22.4 % (8-40); MCHC 33.7 g/dl (32.0-35.9); MEAN PLT VOLUME 9.1 fl (7.5-11.1); MONO % 6.1 % (3.8-10.2); NEUT % 67.6 % (42.8-82.8); PLATELET COUNT 221 K/MM3 (134-434); RBC 4.91 M/mm3 (4.00-5.60); RDW 13.6 % (11.9-15.9); WHITE BLOOD COUNT 8.1 K/mm3 (4.0-10.0)
[2019-03-01 09:15] LABS: ALBUMIN 3.5 g/dl (3.4-5.0); ALK PHOS 107 U/L (45-117); ANION GAP 5 MMOL/L (8-16); BILIRUBIN,TOTAL 0.4 mg/dL (0.2-1); BLOOD UREA NITROGEN 15.8 mg/dL (7-18); CHLORIDE 110 mmol/L (98-107); CO2 25 mmol/L (21-32); CREATININE 0.8 mg/dL (0.55-1.3); GLUCOSE,RANDOM 91 mg/dL (74-106); POTASSIUM 4.3 mmol/L (3.5-5.1); SGOT/AST 24 U/L (15-37); SGPT/ALT 49 U/L (13-61); SODIUM 140 mmol/L (136-145); TOT PROT 6.6 g/dl (6.4-8.2)
--- NOTE | 2019-03-01 09:17 | DS ---
Physical Examination Vital Signs: Vital Signs Temperature 97.6 F 03/01/19 06:00 Pulse Rate 69 03/01/19 06:00 Respiratory Rate 18 03/01/19 06:00 Blood Pressure 107/72 03/01/19 06:00 O2 Sat by Pulse Oximetry (%) 98 02/28/19 22:30 Cardiovascular: Yes: S1, S2 Respiratory: Yes: Regular, CTA Bilaterally Gastrointestinal: Yes: Normal Bowel Sounds, Soft Neurological: Yes: Alert, Pre-Existing Deficit Labs: CBC, BMP 03/01/19 08:30 03/01/19 08:30 Discharge Summary Problems reviewed: Yes Reason For Visit: TIA Current Active Problems HTN (hypertension) (Acute) Seizure (Acute) TIA (transient ischemic attack) (Acute) Hospital Course: - Problems (1) Seizure Assessment/Plan: may have had a breakthrough seizur contine with meds mri neuro Code(s): R56.9 - UNSPECIFIED CONVULSIONS (2) HTN (hypertension) Assessment/Plan: monitor Vital Signs Period Temp Pulse Resp BP Sys/Paredes Pulse Ox Last 24 Hr 97.4 F-98.7 F 76-94 17-20 108-146/63-89 95-98 controlled on lisinopril Code(s): I10 - ESSENTIAL (PRIMARY) HYPERTENSION (3) TIA (transient ischemic attack) Code(s): G45.9 - TRANSIENT CEREBRAL ISCHEMIC ATTACK, UNSPECIFIED (4) Anxiety Assessment/Plan: observe Code(s): F41.9 - ANXIETY DISORDER, UNSPECIFIED (5) Chest Pain Assessment/Plan: CE negative resolved follow up ce and cardio IF cleared by cardio--dc home Condition: Stable - Instructions Referrals: Israel Taylor [Primary Care Provider] - 1 Week Disposition: HOME - Home Medications Comprehensive Discharge Medication List: Ambulatory Orders Lisinopril 10 mg PO DAILY 10/14/17 Loratadine [Claritin] 10 mg PO DAILY #20 tablet 04/24/18 Meclizine HCl [Antivert -] 25 mg PO QID #28 tablet 02/24/19 Phenytoin Na Extended [Dilantin -] 100 mg PO BID capsule 03/01/19 levETIRAcetam [Keppra -] 750 mg PO BID #180 tablet 03/01/19
--- NOTE | 2019-03-01 10:19 | PN ---
Progress Note (short form) - Note Progress Note: 43 year old male history of htn, anxiety, hld, epilepsy. HE has been on dilantin 100 mg po tid and had generalzied tonic clonic seizure and resolved. Patinet has ct head it is unremarkable. He has left facial palsy. he denies any other focal neurologica symptoms. his dilantin level were 31. 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 He was given keppra and no seizure overnight. spoke to pharmacy adjusted dilantin to 100 m gpo bi dand keppra 750 mg po bid NEUROLOGICAL EXAMINATION Alert follow command, speech is normal vss, neck is supple left facial palsy moving all extremity sensation is normal reflex are normal ct head is unremarkable mri of brain is unremarkable eeg is pending Assessment/Plan 43 year old male history of htn, anxiety, hld, epilepsy. He came with breakthrough seizure and left facial palsy, ct head is uremarkable. dialntin level is therapeutic 2. [place] palsy Plan: mri of brain was unremarkable continue keppra 750 mg po bid and dilntin 100 mg po bid seizure precaution speech therapy and pt patinet can be discharged from neurological point of view Thanking you so much Anibal Roger MD
[2019-03-01] MEDS ORDERED: PT OWN MED DRAWER 7, Y5N ONE (11:26)
--- NOTE | 2019-03-01 11:32 | PN ---
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 mri of brain was unremarkable No further f/u indicated.
[2019-03-01] MEDS: HEPARIN NA (PORCINE) 5,000 UNITS/ML 1ML VIAL SQ SCH (11:47)
[2019-03-01] MEDS: LORATADINE 10 MG TABLET PO SCH (11:47)
[2019-03-01] MEDS: PHENYTOIN NA EXTENDED 100 MG CAPSULE (FP) PO SCH (11:47)
[2019-03-01] MEDS: LISINOPRIL 10 MG TABLET (FP) PO SCH (11:48)
--- NOTE | 2019-03-01 13:49 | EKG ---
Test Reason : Blood Pressure : / mmHG Vent. Rate : 084 BPM Atrial Rate : 084 BPM P-R Int : 152 ms QRS Dur : 102 ms QT Int : 380 ms P-R-T Axes : 061 017 065 degrees QTc Int : 449 ms NORMAL SINUS RHYTHM NORMAL ECG WHEN COMPARED WITH ECG OF 28-FEB-2019 22:35, NONSPECIFIC T WAVE ABNORMALITY NO LONGER EVIDENT IN ANTERIOR LEADS Confirmed by RON PATTERSON MD ([id number]) on 03/01/2019 1:49:15 PM Referred By: CHACORTA IBRAHIM Confirmed By:RON PATTERSON MD
--- NOTE | 2019-03-01 14:00 | EKG ---
Test Reason : Blood Pressure : / mmHG Vent. Rate : 081 BPM Atrial Rate : 081 BPM P-R Int : 148 ms QRS Dur : 098 ms QT Int : 402 ms P-R-T Axes : 043 -02 048 degrees QTc Int : 466 ms NORMAL SINUS RHYTHM POSSIBLE LEFT ATRIAL ENLARGEMENT NONSPECIFIC T WAVE ABNORMALITY PROLONGED QT ABNORMAL ECG Confirmed by RON PATTERSON MD ([id number]) on 03/01/2019 2:00:14 PM Referred By: MARY Confirmed By:RON PATTERSON MD
--- NOTE | 2019-03-01 14:05 | PN ---
Progress Note, Physician Chief Complaint: Epigastric abdominal discomfort. Telem NSR Echcoardiogram Normal LV function no valvular pathology. History of Present Illness: 43M w/ a history Epilepsy, HTN, HLD, anxiety, and chronic LUE/BLE pain who presents for evaluation s/p seizure, tonic-clonic features that resolved spontaneously. And noted to have a facial droop. He states that he has been compliant with his medications. He denies fevers/chills, vision changes, chest pain, trouble breathing, abdominal pain, N/V/V/D, dysuria, hematuria, or changes in sensation. ECG NSR no ST T changes MICHAEL negative. - Current Medication List Current Medications: Active Medications Acetaminophen (Tylenol -) 650 mg PO Q4H PRN PRN Reason: PAIN SCALE 5-10 Last Admin: 02/28/19 16:59 Dose: 650 mg Heparin Sodium (Porcine) (Heparin -) 5,000 unit SQ BID [facility] Last Admin: 03/01/19 11:47 Dose: 5,000 unit Sodium Chloride (Normal Saline -) 1,000 mls @ 42 mls/hr IV ASDIR [facility] Last Admin: 02/28/19 15:37 Dose: 42 mls/hr Levetiracetam 250 mg/ (Levetiracetam 500 mg) 750 mg PO BID [facility] Last Admin: 03/01/19 11:47 Dose: 750 mg Lisinopril (Prinivil) 10 mg PO DAILY [facility] Last Admin: 03/01/19 11:48 Dose: 10 mg Loratadine (Claritin -) 10 mg PO DAILY [facility] Last Admin: 03/01/19 11:47 Dose: 10 mg Meclizine HCl (Antivert -) 25 mg PO Q8H PRN PRN Reason: VERTIGO Last Admin: 02/28/19 11:06 Dose: 25 mg Phenytoin Sodium (Dilantin -) 100 mg PO BID [facility] Last Admin: 03/01/19 11:47 Dose: 100 mg - Objective Vital Signs: Vital Signs Temperature 97.4 F L 03/01/19 10:00 Pulse Rate 84 03/01/19 10:00 Respiratory Rate 18 03/01/19 10:00 Blood Pressure 114/64 03/01/19 10:00 O2 Sat by Pulse Oximetry (%) 95 03/01/19 09:00 Constitutional: Yes: Well Nourished, No Distress Eyes: Yes: Conjunctiva Clear, EOM Intact HENT: Yes: Atraumatic, Normocephalic Neck: Yes: Supple, Trachea Midline Cardiovascular: Yes: Regular Rate and Rhythm, S1, S2. No: JVD Respiratory: Yes: Regular, CTA Bilaterally Gastrointestinal: Yes: Normal Bowel Sounds Edema: No Labs: CBC, BMP 03/01/19 08:30 03/01/19 08:30 INR, PTT INR 0.94 (0.83-1.09) 02/27/19 14:50 Problem List - Problems (1) HTN (hypertension) Code(s): I10 - ESSENTIAL (PRIMARY) HYPERTENSION Assessment/Plan 43M w/ a history Epilepsy, HTN, HLD, anxiety, and chronic LUE/BLE pain who presents after a seizure . Developed epigastric discomfort. Non cardiac pain Telemetry ECG and EChocardiogram are noraml. Possibly GERD. No further cardiac testing is advised. FU Prn
[2019-03-01 14:06] VITALS: BP 120/67; PULSE 87; TEMP 98.7
[2019-03-01] MEDS ORDERED: PANTOPRAZOLE 40 MG TABLET PO SCH (14:45)
== END 2019-03-01 16:37 | disposition home health service (06) | DRG 53 ==
LOC: JER 14:30 → JERBED 16:22 → J4W 21:33
PROVIDERS: ADMIT Family Medicine; ATTEND Family Medicine
DX: G40.909 Epilepsy, unspecified, not intractable, without status epilepticus (principal); E78.5 Hyperlipidemia, unspecified; F41.9 Anxiety disorder, unspecified; R10.13 Epigastric pain; R47.1 Dysarthria and anarthria; R29.810 Facial weakness; K21.9 Gastro-esophageal reflux disease without esophagitis; I10 Essential (primary) hypertension; F17.210 Nicotine dependence, cigarettes, uncomplicated
CPT/HCPCS: 36415; 70450-TC; 70551-TC; 80053; 80061; 80185; 81003; 82550; 82962; 83721; 83735; 84100; 84443; 84484; 85025; 85610; 85730; 86850; 86900; 86901; 90670; 93005; 93010; 93306-TC; 95816; 97116-GP; 97161-GP; 99283-25; G0008; G0009; J1644; J7030; Q2036

== ENCOUNTER 2019-03-17 08:53 | Emergency (ER) | payer OTHER ==
[2019-03-17 09:09] VITALS: TEMP 98.1; BMI 23.8
--- NOTE | 2019-03-17 09:57 | PDOC ---
History of Present Illness - General Chief Complaint: Seizure Stated Complaint: SEIZURES Time Seen by Provider: 03/17/19 09:10 - History of Present Illness Initial Comments: Kev Burks is a 43 y/o male with PMH significant for epilepsy and HTN, presenting today after 20 minutes of tongue twitching that he is concerned is a seizure. Reports that he took his medicine today. Denies any tonic clonic seizure movements. Denies LOC. Denies fall or head trauma. Denies fever. Denies chills. Denies chest pain/shortness of breath. Denies abdominal pain. Denies n/v /d. Denies weakness. He was evaluated for generalized tonic clonic seizures and slurred speech here two weeks ago. PMH: Lopez's palsy left side Neuro: Dr. Anibal Roger Meds: Ekaterina Dickson Past History - Past Medical History Allergies/Adverse Reactions: Allergies Allergy/AdvReac Type Severity Reaction Status Date / Time Penicillins Allergy Verified 03/17/19 09:09 shellfish derived Allergy Verified 03/17/19 09:09 Home Medications: Ambulatory Orders Pantoprazole Sodium [Protonix -] 40 mg PO DAILY #30 tablet.ec 03/01/19 Phenytoin Na Extended [Dilantin -] 100 mg PO BID capsule 03/01/19 levETIRAcetam [Keppra -] 750 mg PO BID #180 tablet 03/01/19 COPD: No DVT: No HTN: Yes Hypercholesterolemia: Yes Psychiatric Problems: Yes (DEPRESSION,ANXIETY) Seizures: Yes (EPILEPSY) - Immunization History Immunization Up to Date: Yes - Psycho Social/Smoking Cessation Hx Smoking History: Unknown if ever smoked Have you smoked in the past 12 months: Yes Number of Cigarettes Smoked Daily: 3 'Breaking Loose' booklet given: 02/27/19 Hx Alcohol Use: No Drug/Substance Use Hx: No Substance Use Type: None Hx Substance Use Treatment: No Review of Systems - Review of Systems Comments:: GENERAL/CONSTITUTIONAL: No fever or chills. No weakness._ HEAD, EYES, EARS, NOSE AND THROAT: No change in vision. No change in hearing. No sore throat. Reports tongue twitching. CARDIOVASCULAR: No chest pain or shortness of breath_ RESPIRATORY: Denies cough, hemoptysis_ GASTROINTESTINAL: No nausea, vomiting, diarrhea or constipation._ GENITOURINARY: No dysuria, frequency, or change in urination._ MUSCULOSKELETAL: No joint or muscle swelling or pain. No neck or back pain._ SKIN: No rash_ NEUROLOGIC: No headache, vertigo, loss of consciousness, or change in strength/ sensation._ ENDOCRINE: No increased thirst. No abnormal weight change_ HEMATOLOGIC/LYMPHATIC: No anemia, easy bleeding, or history of blood clots._ ALLERGIC/IMMUNOLOGIC: No hives or skin allergy._ *Physical Exam - Vital Signs Last Vital Signs Temp Pulse Resp BP Pulse Ox 98.1 F 82 16 142/100 98 03/17/19 09:07 03/17/19 09:07 03/17/19 09:07 03/17/19 09:07 03/17/19 09:07 - Physical Exam GENERAL: Awake, alert, and oriented to person/place/time, in no acute distress_ HEAD: No signs of trauma, normoc ephalic, atraumatic _ EYES: PERRLA, EOMI, sclera anicteric, conjunctiva clear_ ENT: Hearing grossly normal, nares patent, oropharynx clear without exudates. No uvular deviation. Moist mucosa. Mild left facial paralysis. NECK: Normal ROM, supple, no lymphadenopathy, JVD, or masses_ LUNGS: No distress, speaks in full sentences, clear to auscultation bilaterally _ HEART: Regular rate and rhythm, normal S1 and S2, no murmurs appreciated, peripheral pulses normal and equal bilaterally._ ABDOMEN: Soft, nontender, normoactive bowel sounds. No guarding, no rebound. No masses_ EXTREMITIES: Normal inspection, Normal range of motion, no edema. No clubbing or cyanosis_ NEUROLOGICAL: Sensation intact to sharp/dull differentiation in all extremities. Motor: Normal tone and bulk. No abnormal movements appreciated. No pronator drift. Strength tested and 5/5 in bilateral wrist flexion/extension, elbow flexion/extension, shoulder abduction, straight leg raise, knee flexion/ extension, ankle dorsiflexion/plantarflexion. Patient ambulates with a steady gait. Coordination: Finger to nose and heel to naik testing intact bilaterally. SKIN: Warm, Dry, normal turgor, no rashes or lesions noted_ ED Treatment Course - LABORATORY CBC & Chemistry Diagram: 03/17/19 10:00 03/17/19 10:00 Medical Decision Making - Medical Decision Making 03/17/19 09:56 43M hx of epilepsy presenting with 20 min of tongue twitching today. -cbc, cmp -ekg -ua, ucx -keppa and dilantin levels 03/17/19 11:39 Labs reviewed. Laboratory Last Values WBC 8.9 K/mm3 (4.0-10.0) 03/17/19 10:00 RBC 5.19 M/mm3 (4.00-5.60) 03/17/19 10:00 Hgb 16.1 GM/dL (11.7-16.9) 03/17/19 10:00 Hct 47.2 % (35.4-49) 03/17/19 10:00 MCV 90.9 fl (80-96) 03/17/19 10:00 MCH 31.1 pg (25.7-33.7) 03/17/19 10:00 MCHC 34.2 g/dl (32.0-35.9) 03/17/19 10:00 RDW 13.6 % (11.9-15.9) 03/17/19 10:00 Plt Count 221 K/MM3 (134-434) 03/17/19 10:00 MPV 9.0 fl (7.5-11.1) 03/17/19 10:00 Absolute Neuts (auto) 6.6 K/mm3 (1.5-8.0) 03/17/19 10:00 Neutrophils % 74.1 % (42.8-82.8) 03/17/19 10:00 Lymphocytes % 18.1 % (8-40) 03/17/19 10:00 Monocytes % 5.4 % (3.8-10.2) 03/17/19 10:00 Eosinophils % 1.5 % (0-4.5) 03/17/19 10:00 Basophils % 0.9 % (0-2.0) 03/17/19 10:00 Nucleated RBC % 0 % (0-0) 03/17/19 10:00 Sodium 137 mmol/L (136-145) 03/17/19 10:00 Potassium 4.6 mmol/L (3.5-5.1) 03/17/19 10:00 Chloride 106 mmol/L (98-107) 03/17/19 10:00 Carbon Dioxide 25 mmol/L (21-32) 03/17/19 10:00 Anion Gap 6 MMOL/L (8-16) L 03/17/19 10:00 BUN 16.8 mg/dL (7-18) 03/17/19 10:00 Creatinine 0.9 mg/dL (0.55-1.3) 03/17/19 10:00 Est GFR (CKD-EPI)AfAm 121.67 03/17/19 10:00 Est GFR (CKD-EPI)NonAf 104.98 03/17/19 10:00 Random Glucose 91 mg/dL (74-106) 03/17/19 10:00 Calcium 9.5 mg/dL (8.5-10.1) 03/17/19 10:00 Total Bilirubin 0.3 mg/dL (0.2-1) 03/17/19 10:00 AST 22 U/L (15-37) 03/17/19 10:00 ALT 50 U/L (13-61) 03/17/19 10:00 Alkaline Phosphatase 115 U/L (45-117) 03/17/19 10:00 Total Protein 7.3 g/dl (6.4-8.2) 03/17/19 10:00 Albumin 3.9 g/dl (3.4-5.0) 03/17/19 10:00 Urine Color Yellow 03/17/19 10:00 Urine Appearance Clear 03/17/19 10:00 Urine pH 6.5 (5.0-8.0) 03/17/19 10:00 Ur Specific [place] 1.008 (1.010-1.035) L 03/17/19 10:00 Urine Protein Negative (NEGATIVE) 03/17/19 10:00 Urine Glucose (UA) Negative (NEGATIVE) 03/17/19 10:00 Urine Ketones Negative (NEGATIVE) 03/17/19 10:00 Urine Blood Negative (NEGATIVE) 03/17/19 10:00 Urine Nitrite Negative (NEGATIVE) 03/17/19 10:00 Urine Bilirubin Negative (NEGATIVE) 03/17/19 10:00 Urine Urobilinogen 0.2 mg/dL (0.2-1.0) 03/17/19 10:00 Ur Leukocyte Esterase Negative (NEGATIVE) 03/17/19 10:00 Phenytoin 6.7 03/17/19 10:00 EKG shows NSR, 88 bpm, no ST elevation, QTc 442. D/w Dr. Iyer who is covering for Dr. Roger. Recommends Dilantin 500 mg PO one time dose and f/u with Dr. Roger tomorrow. D/w the pt who verbalized understanding and agreement with plan. All questions answered. Return precautions given. Discharge - Discharge Information Problems reviewed: Yes Clinical Impression/Diagnosis: Dystonic movements Condition: Stable Disposition: HOME - Admission No - Follow up/Referral Referrals: Roderick Sanchez MD [Primary Care Provider] - Anibal Roger MD [Staff Physician] - - Patient Discharge Instructions Additional Instructions: Please continue taking your medications as prescribed. Please make a follow up appointment with Dr. Roger tomorrow. If you experience any new, worsening, or concerning symptoms please return to the ED. Contine tomando zeus medicamentos segn lo recetado. Gerald ady nadia de seguimiento con el Dr. Kana vega. Si experimenta algn sntoma nuevo, que empeora o preocupa, regrese al servicio de urgencias. - Post Discharge Activity
[2019-03-17 10:22] LABS: PH,URINE 6.5 (5.0-8.0); URINE APPEARANCE CLEAR; URINE BILIRUBIN NEGATIVE (NEGATIVE); URINE COLOR YELLOW; URINE GLUCOSE (UA) NEGATIVE (NEGATIVE); URINE KETONE NEGATIVE (NEGATIVE); URINE LEUK ESTERASE NEGATIVE (NEGATIVE); URINE NITRITE NEGATIVE (NEGATIVE); URINE PROTEIN NEGATIVE (NEGATIVE); URINE UROBILINOGEN 0.2 mg/dL (0.2-1.0)
[2019-03-17 10:28] LABS: BASO % 0.9 % (0-2.0); EOS % 1.5 % (0-4.5); HEMATOCRIT 47.2 % (35.4-49); HEMOGLOBIN 16.1 GM/dL (11.7-16.9); LYMPH % 18.1 % (8-40); MCH 31.1 pg (25.7-33.7); MCHC 34.2 g/dl (32.0-35.9); MEAN CELL VOLUME 90.9 fl (80-96); MONO % 5.4 % (3.8-10.2); NEUT % 74.1 % (42.8-82.8); PLATELET COUNT 221 K/MM3 (134-434); RBC 5.19 M/mm3 (4.00-5.60); RDW 13.6 % (11.9-15.9); WHITE BLOOD COUNT 8.9 K/mm3 (4.0-10.0)
[2019-03-17 10:51] LABS: ALBUMIN 3.9 g/dl (3.4-5.0); BILIRUBIN,TOTAL 0.3 mg/dL (0.2-1); BLOOD UREA NITROGEN 16.8 mg/dL (7-18); CALCIUM 9.5 mg/dL (8.5-10.1); CREATININE 0.9 mg/dL (0.55-1.3); POTASSIUM 4.6 mmol/L (3.5-5.1); TOT PROT 7.3 g/dl (6.4-8.2)
[2019-03-17] MEDS ORDERED: PHENYTOIN NA EXTENDED 100 MG CAPSULE (FP) PO ONE (11:38)
[2019-03-17] MEDS ORDERED: PHENYTOIN NA EXTENDED 100 MG CAPSULE (FP) ONE (11:47)
[2019-03-17 12:02] VITALS: BP 117/61; PULSE 67
--- NOTE | 2019-03-17 12:02 | PDOC ---
Documentation entered by Kev Valdes SCRIBE, acting as scribe for Mayra Nair MD. Mayra Nair MD: This documentation has been prepared by the Lucio chester Daniel, SCRIBE, under my direction and personally reviewed by me in its entirety. I confirm that the documentation accurately reflects all work, treatment, procedures, and medical decision making performed by me. Attending Attestation - Resident Resident Name: Brain Moura - ED Attending Attestation I have performed the following: I have examined & evaluated the patient, The case was reviewed & discussed with the resident, I agree w/resident's findings & plan, Exceptions are as noted - HPI HPI: 03/17/19 10:07 The patient is a 43 year old male with a past medical history of HTN, depression , anxiety, and epilepsy here today for evaluation of mouth twisting. The patient reports that he had 10 minutes of uncontrollable mouth movements today. He states that he couldn't talk during this episode, denies any loss of consciousness, and felt slightly anxious. He comes in today because he is concerned that this was a seizure. He states that he has had a similar event 1 week ago. Patient was seen 2 weeks ago for a seizure. Patient denies headache, lightheadedness. Denies fever, chills. Denies chest pain, shortness of breath. Denies nausea, vomiting, diarrhea, abdominal pain. Allergies: penicillins, shellfish derived Social history: Confirms tobacco use and social alcohol use. PCP: Roderick Sanchez - Physicial Exam PE: 03/17/19 10:27 GENERAL: Awake, alert, and fully oriented, in no acute distress HEAD: No signs of trauma EYES: PERRLA, EOMI, sclera anicteric, conjunctiva clear ENT: +mild tongue fasciculations. Auricles normal inspection, hearing grossly normal, nares patent, oropharynx clear without exudates. Moist mucosa NECK: Normal ROM, supple, no lymphadenopathy, JVD, or masses LUNGS: Breath sounds equal, clear to auscultation bilaterally. No wheezes, and no crackles HEART: Regular rate and rhythm, normal S1 and S2, no murmurs, rubs or gallops ABDOMEN: Soft, nontender, normoactive bowel sounds. No guarding, no rebound. No masses EXTREMITIES: Normal range of motion, no edema. No clubbing or cyanosis. No cords, erythema, or tenderness NEUROLOGICAL: Cranial nerves II through XII grossly intact. Normal speech, normal gait SKIN: Warm, Dry, normal turgor, no rashes or lesions noted. - Medical Decision Making 03/17/19 11:32 pt presents to the ED complaining of twisting movements of his tongue and lower jaw that lasted for approximately 10 minutes and are spontaneously improving. Symptoms seem consistent with a dystonic reaction, although he does not report any medications that would cause dystonia. Given benadryl in the Ed. Dilantin is slightly low. Will load with 500 PO and discharge home with instructions to follow up with neurology and return to the ED for worsening symptoms.
--- NOTE | 2019-03-18 09:42 | EKG ---
Test Reason : Blood Pressure : / mmHG Vent. Rate : 088 BPM Atrial Rate : 088 BPM P-R Int : 148 ms QRS Dur : 094 ms QT Int : 366 ms P-R-T Axes : 051 -02 037 degrees QTc Int : 442 ms POOR DATA QUALITY, INTERPRETATION MAY BE ADVERSELY AFFECTED NORMAL SINUS RHYTHM NORMAL ECG WHEN COMPARED WITH ECG OF 01-MAR-2019 08:40, NO SIGNIFICANT CHANGE WAS FOUND Confirmed by Buck Piper ([id number]) on 03/18/2019 9:42:41 AM Referred By: Confirmed By:Buck Piper
== END 2019-03-17 11:59 | disposition home or self-care (01) ==
LOC: JER 08:53
PROC: 3E033GC Introduction of Other Therapeutic Substance into Peripheral Vein, Percutaneous Approach (ICD-10-PCS; principal; 2019-03-17)
DX: G24.9 Dystonia, unspecified (principal); I10 Essential (primary) hypertension; G40.909 Epilepsy, unspecified, not intractable, without status epilepticus; Z88.0 Allergy status to penicillin; Z91.013 Allergy to seafood; F32.9 Major depressive disorder, single episode, unspecified; F41.9 Anxiety disorder, unspecified
CPT/HCPCS: 36415; 80053; 80177; 80185; 81003; 85025; 93005; 93010; 96374; 99285-25

== ENCOUNTER 2019-03-20 11:32 | Inpatient (IN) | payer OTHER ==
[2019-03-20] MEDS ORDERED: ONDANSETRON 4 MG/2 ML VIAL IVPUSH ONE (13:30)
[2019-03-20] MEDS ORDERED: diazePAM 2 MG TABLET PO ONE (13:30)
[2019-03-20] MEDS ORDERED: ONDANSETRON 4 MG/2 ML VIAL ONE (13:45)
[2019-03-20] MEDS ORDERED: diazePAM 2 MG TABLET ONE (13:45)
[2019-03-20 14:06] LABS: BASO % 0.3 % (0-2.0); EOS % 1.3 % (0-4.5); HEMATOCRIT 47.1 % (35.4-49); HEMOGLOBIN 16.3 GM/dL (11.7-16.9); LYMPH % 19.9 % (8-40); MCH 31.2 pg (25.7-33.7); MCHC 34.5 g/dl (32.0-35.9); MEAN CELL VOLUME 90.4 fl (80-96); MEAN PLT VOLUME 9.1 fl (7.5-11.1); MONO % 4.2 % (3.8-10.2); NEUT % 74.3 % (42.8-82.8); PLATELET COUNT 209 K/MM3 (134-434); RBC 5.21 M/mm3 (4.00-5.60); RDW 13.6 % (11.9-15.9); WHITE BLOOD COUNT 8.4 K/mm3 (4.0-10.0)
[2019-03-20 14:28] LABS: BILIRUBIN,TOTAL 0.3 mg/dL (0.2-1); BLOOD UREA NITROGEN 8.2 mg/dL (7-18); CALCIUM 9.5 mg/dL (8.5-10.1); CREATININE 0.9 mg/dL (0.55-1.3); POTASSIUM 4.3 mmol/L (3.5-5.1); TOT PROT 7.7 g/dl (6.4-8.2)
--- NOTE | 2019-03-20 15:32 | PDOC ---
Documentation entered by Shon Castillo SCRIBE, acting as scribe for Jennifer Taylor MD. Jennifer Taylor MD: This documentation has been prepared by the Anna chester Nirvannie, SCRIBE, under my direction and personally reviewed by me in its entirety. I confirm that the documentation accurately reflects all work, treatment, procedures, and medical decision making performed by me. History of Present Illness - General Chief Complaint: Blurry Vision Stated Complaint: Blurry Vision History Source: Patient Exam Limitations: No Limitations - History of Present Illness Initial Comments: 03/20/19 13:51 The patient is a 43 year old male, with a significant past medical history of hypertension, depression, anxiety, and epilepsy, who presents to the emergency department with 3 days of dizziness and diplopia. Patient describes his dizziness as room-spinning and going upwards with associated mild double vision, ataxic gait, and bilateral tinnitus. Patient endorses using an unknown medication for vertigo that he notes, made his symptoms worse, prompting her arrival to the ED. He denies any recent head/neck trauma. He denies any recent fevers or chills. He denies any recent nausea, vomit, diarrhea or constipation. He denies any recent chest pain or shortness of breath. He denies any recent dysuria, frequency, urgency or hematuria. Allergies: penicillins, shellfish derived Social History: Tobacco use and social alcohol use. Primary Care Physician: Dr. Roderick Sanchez Neurologist: Dr. Anibal Roger NIH Stroke Scale - Last Known Well Date/Time & Onset Date Last Known Well: 03/17/19 - Initial Evaluation Level of consciousness: Alert Ask patient the month and their age: Answers both correctly Ask patient to open & close eyes; make fist and let go: Obeys both correctly Best gaze (horizontal eye movement): Normal Visual field testing: No visual field loss Facial paresis (Show teeth/raise eyebrows/close eyes tight): Normal symmetrical movement Motor Function: Left Arm: Normal Motor Function: Right Arm: Normal (extends arm 90 (or 45) degrees for 10 seconds without drift Motor Function: Left Leg: Normal (extends leg 30 degrees for 5 seconds without drift) Motor Function: Right Leg: Normal (extends leg 30 degrees for 5 seconds without drift) Limb Ataxia: Present in one limb (left dysmetria noted on finger to nose) Sensory(Use pinprick test arms,legs,trunk,face/side to side): Normal Best language (Describe picture, name items, read sentences): No Aphasia Dysarthria (read several words): Normal articulation Extinction and Inattention: No abnormality - Total Score NIH Stroke Scale Score: 1 Past History - Past Medical History Allergies/Adverse Reactions: Allergies Allergy/AdvReac Type Severity Reaction Status Date / Time Penicillins Allergy Verified 03/20/19 11:41 shellfish derived Allergy Verified 03/20/19 11:41 Home Medications: Ambulatory Orders Pantoprazole Sodium [Protonix -] 40 mg PO DAILY #30 tablet.ec 03/01/19 Phenytoin Na Extended [Dilantin -] 100 mg PO BID capsule 03/01/19 levETIRAcetam [Keppra -] 750 mg PO BID #180 tablet 03/01/19 Nortriptyline HCl [Pamelor -] 50 mg PO BID 03/20/19 COPD: No DVT: No HTN: Yes Hypercholesterolemia: Yes Psychiatric Problems: Yes (DEPRESSION,ANXIETY) Seizures: Yes (EPILEPSY) - Immunization History Immunization Up to Date: Yes - Psycho Social/Smoking Cessation Hx Smoking History: Current every day smoker Have you smoked in the past 12 months: Yes Number of Cigarettes Smoked Daily: 2 Information on smoking cessation initiated: No 'Breaking Loose' booklet given: 02/27/19 Hx Alcohol Use: No Drug/Substance Use Hx: No Substance Use Type: None Hx Substance Use Treatment: No Review of Systems - Review of Systems Comments:: 03/20/19 13:51 GENERAL/CONSTITUTIONAL: No fever or chills. No weakness. HEAD, EYES, EARS, NOSE AND THROAT: +Tinnitus. +diplopia. No ear pain or discharge. No sore throat. CARDIOVASCULAR: No chest pain or shortness of breath. RESPIRATORY: No cough, wheezing, or hemoptysis. GASTROINTESTINAL: No nausea, vomiting, diarrhea or constipation. GENITOURINARY: No dysuria, frequency, or change in urination. MUSCULOSKELETAL: No joint or muscle swelling or pain. No neck or back pain. SKIN: No rash NEUROLOGIC: +Vertigo. +Ataxic gait. No headache, loss of consciousness, or change in strength/sensation. ENDOCRINE: No increased thirst. No abnormal weight change. HEMATOLOGIC/LYMPHATIC: No anemia, easy bleeding, or history of blood clots. ALLERGIC/IMMUNOLOGIC: No hives or skin allergy. *Physical Exam - Vital Signs Last Vital Signs Temp Pulse Resp BP Pulse Ox 97.9 F 107 H 16 163/109 H 99 03/20/19 11:38 03/20/19 11:38 03/20/19 11:38 03/20/19 11:38 03/20/19 11:38 ED Treatment Course - LABORATORY CBC & Chemistry Diagram: 03/21/19 05:45 03/21/19 05:45 - ADDITIONAL ORDERS Additional order review: Laboratory Results 03/20/19 13:40 Sodium 140 Potassium 4.3 Chloride 105 Carbon Dioxide 30 Anion Gap 5 L BUN 8.2 Creatinine 0.9 Est GFR (CKD-EPI)AfAm 121.67 Est GFR (CKD-EPI)NonAf 104.98 Random Glucose 92 Calcium 9.5 Total Bilirubin 0.3 AST 20 ALT 37 Alkaline Phosphatase 127 H Total Protein 7.7 Albumin 4.0 03/20/19 13:40 RBC 5.21 MCV 90.4 MCHC 34.5 RDW 13.6 MPV 9.1 Neutrophils % 74.3 Lymphocytes % 19.9 Monocytes % 4.2 Eosinophils % 1.3 Basophils % 0.3 - RADIOLOGY Radiology Studies Ordered: Category Date Time Status HEAD CT WITHOUT CONTRAST [CT] Stat CT Scan 03/20/19 13:25 Completed - Medications Given in the ED: ED Medications Discontinued Medications Generic Name Dose Route Start Last Admin Trade Name Freq PRN Reason Stop Dose Admin Diazepam 2 mg 03/20/19 13:30 03/20/19 13:49 Valium - PO 03/20/19 13:31 2 mg ONCE ONE Administration Ondansetron HCl 4 mg 03/20/19 13:30 03/20/19 13:59 Zofran Injection IVPUSH 03/20/19 13:31 4 mg ONCE ONE Administration Medical Decision Making - Medical Decision Making 03/20/19 15:25 43 yo male h/o htn epilepsy on keppra and dilantin , recently admitted for seizure activity , here today c/o vertigo. pt describes double vision, like vision is going up, and vertigo. does feel imbalanced when walking does have mild ringing in the ear. denies mod factors. pt states has been prescribed meclizine for vertigo in the past no relief feel making his symptoms worse. on exam pt with dysmetria, on left. vertical and horizontal nystagmus. ct head negative. labs normal. 03/20/19 15:30 d/w DR barragan, covering for Taylor will admit pt. d/w pt nuerologist dr Padron , recommend MrI. levels of dilantin and keppra pending. Discharge - Discharge Information Problems reviewed: Yes Clinical Impression/Diagnosis: Diplopia, Vertigo - Admission Yes - Follow up/Referral - Patient Discharge Instructions - Post Discharge Activity
[2019-03-20] MEDS ORDERED: NORTRIPTYLINE HCL 50 MG CAPSULE PO SCH (22:00)
[2019-03-20 22:02] VITALS: BMI 21.2
[2019-03-20] MEDS ORDERED: NORTRIPTYLINE HCL 25 MG CAPSULE PO SCH (22:23)
[2019-03-20] MEDS: HEPARIN NA (PORCINE) 5,000 UNITS/ML 1ML VIAL SQ SCH (22:24)
[2019-03-20] MEDS: levETIRAcetam 250 MG TABLET PO SCH (22:25)
[2019-03-20] MEDS: PHENYTOIN NA EXTENDED 100 MG CAPSULE (FP) PO SCH (22:25)
[2019-03-21] MEDS: MECLIZINE HCL 12.5 MG TABLET PO SCH ×4 (00:02→17:45)
[2019-03-21] MEDS ORDERED: LORATADINE 10 MG TABLET PO ONE (01:01)
[2019-03-21 07:02] LABS: BASO % 0.5 % (0-2.0); EOS % 4.9 % (0-4.5); HEMATOCRIT 42.7 % (35.4-49); HEMOGLOBIN 14.9 GM/dL (11.7-16.9); LYMPH % 41.1 % (8-40); MCH 31.2 pg (25.7-33.7); MCHC 34.8 g/dl (32.0-35.9); MEAN CELL VOLUME 89.6 fl (80-96); MEAN PLT VOLUME 9.5 fl (7.5-11.1); MONO % 7.5 % (3.8-10.2); PLATELET COUNT 196 K/MM3 (134-434); RBC 4.77 M/mm3 (4.00-5.60); RDW 13.8 % (11.9-15.9); WHITE BLOOD COUNT 5.2 K/mm3 (4.0-10.0)
[2019-03-21 07:45] LABS: ALBUMIN 3.5 g/dl (3.4-5.0); BILIRUBIN,TOTAL 0.3 mg/dL (0.2-1); BLOOD UREA NITROGEN 9.1 mg/dL (7-18); CALCIUM 8.8 mg/dL (8.5-10.1); CREATININE 0.8 mg/dL (0.55-1.3); MAGNESIUM 2.1 mg/dL (1.8-2.4); PHOSPHOROUS 3.6 mg/dL (2.5-4.9); TOT PROT 6.6 g/dl (6.4-8.2)
--- NOTE | 2019-03-21 10:01 | CON.NEURO ---
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 Cardio/Vascular: Yes: HTN, Hyperlipdemia - Alcohol/Substance Use Hx Alcohol Use: No - Smoking History Smoking history: Current every day smoker Have you smoked in the past 12 months: Yes Aproximately how many cigarettes per day: 2 Home Medications - Allergies Allergies/Adverse Reactions: Allergies Allergy/AdvReac Type Severity Reaction Status Date / Time Penicillins Allergy Verified 03/20/19 11:41 shellfish derived Allergy Verified 03/20/19 11:41 - Home Medications Home Medications: Ambulatory Orders Pantoprazole Sodium [Protonix -] 40 mg PO DAILY #30 tablet.ec 03/01/19 Phenytoin Na Extended [Dilantin -] 100 mg PO BID capsule 03/01/19 levETIRAcetam [Keppra -] 750 mg PO BID #180 tablet 03/01/19 Nortriptyline HCl [Pamelor -] 50 mg PO BID 03/20/19 Physical Exam-Neuro Vital Signs: Vital Signs Temperature 98.2 F 03/21/19 08:50 Pulse Rate 98 H 03/21/19 08:50 Respiratory Rate 16 03/21/19 08:50 Blood Pressure 143/90 03/21/19 08:50 O2 Sat by Pulse Oximetry (%) 95 03/21/19 03:23 Labs: CBC, BMP 03/21/19 05:45 03/21/19 05:45 Assessment/Plan cc Dizziness and blurring of vision HPI 43 year old male history of Hypertension, Depression, Anxiety, Epilepsy( last seizure in 2019 unprovoked). He is on keppra 750 mg po bid and dilantin 100 m gpo bid. Patient also takes pamelor 50 mg po bid for tension headahce. He did have mri recently and it was unremarkable. He came with severe vertigo sensation and leading to double vision when he moving his head and with severe vertigo. Today he is much better ,but still having vertigo on moving head. There is no fever, trauma, or cancer. Patient had ct scan of brain it was unremarkable, and he is waiting for mr of brain. 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 Severe vertigo sensation , most likley bppv, patient has normal ct head and given his syptoms of double vision , he is admitted for possible stroke and mri of brain and rule out brain stem stroke Plan: hold nortripytline as he has retension of urine and severe dizziness - continue keppra and dialntin for now, eeg -PT -his syptoms are much iproved. -He can be discharged home, once mri of brain is unremarkable Thanking you so much Zander Roger MD
--- NOTE | 2019-03-21 10:42 | PN ---
Progress Note, Physician - Current Medication List Current Medications: Active Medications Heparin Sodium (Porcine) (Heparin -) 5,000 unit SQ BID [facility] Last Admin: 03/20/19 22:24 Dose: 5,000 unit Levetiracetam (Keppra -) 750 mg PO BID [facility] Last Admin: 03/20/19 22:25 Dose: 750 mg Meclizine HCl (Antivert -) 12.5 mg PO Q6HPO [facility] Last Admin: 03/21/19 06:03 Dose: 12.5 mg Pantoprazole Sodium (Protonix -) 40 mg PO DAILY [facility] Phenytoin Sodium (Dilantin -) 100 mg PO BID [facility] Last Admin: 03/20/19 22:25 Dose: 100 mg - Objective Vital Signs: Vital Signs Temperature 98.2 F 03/21/19 08:50 Pulse Rate 98 H 03/21/19 08:50 Respiratory Rate 16 03/21/19 08:50 Blood Pressure 143/90 03/21/19 08:50 O2 Sat by Pulse Oximetry (%) 95 03/21/19 03:23 Labs: CBC, BMP 03/21/19 05:45 03/21/19 05:45
[2019-03-21] MEDS: PANTOPRAZOLE 40 MG TABLET PO SCH (11:22)
[2019-03-21] MEDS: HEPARIN NA (PORCINE) 5,000 UNITS/ML 1ML VIAL SQ SCH ×2 (11:22→21:37)
[2019-03-21] MEDS: levETIRAcetam 250 MG TABLET PO SCH ×2 (11:22→21:36)
[2019-03-21] MEDS: PHENYTOIN NA EXTENDED 100 MG CAPSULE (FP) PO SCH ×2 (11:22→21:37)
--- NOTE | 2019-03-21 11:58 | HP ---
Admitting History and Physical - Primary Care Physician PCP: Israel Taylor - Admission Chief Complaint: Vertigo, Blurred vision History of Present Illness: Patient is a 43 y/o male with past medical history of Epilepsy, HTN, Depression , and Anxiety. Patient presented to ER with complaints of dizziness and diplopia for 3 days. Dizziness is described as the "room spinning" accompanied with double vision, unsteady gait, and ear ringing. 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 Cardiovascular: Yes: HTN, Hyperlipdemia - Smoking History Smoking history: Current every day smoker Have you smoked in the past 12 months: Yes Aproximately how many cigarettes per day: 2 - Alcohol/Substance Use Hx Alcohol Use: No Home Medications - Allergies Allergies/Adverse Reactions: Allergies Allergy/AdvReac Type Severity Reaction Status Date / Time Penicillins Allergy Verified 03/20/19 11:41 shellfish derived Allergy Verified 03/20/19 11:41 - Home Medications Home Medications: Ambulatory Orders Pantoprazole Sodium [Protonix -] 40 mg PO DAILY #30 tablet.ec 03/01/19 Phenytoin Na Extended [Dilantin -] 100 mg PO BID capsule 03/01/19 levETIRAcetam [Keppra -] 750 mg PO BID #180 tablet 03/01/19 Nortriptyline HCl [Pamelor -] 50 mg PO BID 03/20/19 Review of Systems - Review of Systems Constitutional: reports: Weakness Eyes: reports: Blurred Vision HENT: reports: Ringing in Ears Neck: reports: No Symptoms Cardiovascular: reports: No Symptoms Respiratory: reports: No Symptoms Gastrointestinal: reports: No Symptoms Genitourinary: reports: Other (retention) Breasts: reports: No Symptoms Reported Musculoskeletal: reports: No Symptoms Integumentary: reports: No Symptoms Neurological: reports: No Symptoms Endocrine: reports: No Symptoms Hematology/Lymphatic: reports: No Symptoms Psychiatric: reports: No Symptoms Physical Examination Vital Signs: Vital Signs Temperature 98.2 F 03/21/19 08:50 Pulse Rate 98 H 03/21/19 08:50 Respiratory Rate 16 03/21/19 08:50 Blood Pressure 143/90 03/21/19 08:50 O2 Sat by Pulse Oximetry (%) 95 03/21/19 03:23 Constitutional: Yes: No Distress, Calm Eyes: Yes: Conjunctiva Clear HENT: Yes: Atraumatic Cardiovascular: Yes: Regular Rate and Rhythm Respiratory: Yes: Regular, CTA Bilaterally Gastrointestinal: Yes: Normal Bowel Sounds, Soft Renal/: Yes: Bladder Distention Musculoskeletal: Yes: Muscle Weakness Extremities: Yes: WNL Edema: No Neurological: Yes: Alert, Oriented Psychiatric: Yes: Alert, Oriented Labs: CBC, BMP 03/21/19 05:45 03/21/19 05:45 Problem List - Problems (1) Diplopia Assessment/Plan: -Neurology consult -Opthomology consult Code(s): H53.2 - DIPLOPIA (2) Vertigo Assessment/Plan: -Neurology consult -EEG pending -Head CT scan shows no evidence of a focal intracranial lesion or hemorrhage -Brain MRI -fall precaution -tele monitoring -meclizine prn Code(s): R42 - DIZZINESS AND GIDDINESS (3) HTN (hypertension) Assessment/Plan: -low Na diet -monitor BP Code(s): I10 - ESSENTIAL (PRIMARY) HYPERTENSION (4) Seizure Assessment/Plan: -Keppra and Dilantin -Neurology on board -seizure precaution -keppra level pending -EEG ordered Code(s): R56.9 - UNSPECIFIED CONVULSIONS (5) Urine retention Assessment/Plan: -noted with 800cc on bladder Scan -Urology consult -Urology placed FC -Pelvic and Renal US Code(s): R33.9 - RETENTION OF URINE, UNSPECIFIED Assessment/Plan see problem list dvt ppx
--- NOTE | 2019-03-21 12:35 | CONSULT ---
Consult Consult Specialty:: UROLOGY Reason for Consultation:: AUR - History of Present Illness Chief Complaint: 43 Y/O Male patient with history of epilepsy developed AUR. He has history of hesitency, nocturia 3 frequency. O/E distended bladder, Genitalia WNL. 2 ways 18 F coude catheter inserted and drain >400 ml urine. 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 Cardio/Vascular: Yes: HTN, Hyperlipdemia - Alcohol/Substance Use Hx Alcohol Use: No - Smoking History Smoking history: Current every day smoker Have you smoked in the past 12 months: Yes Aproximately how many cigarettes per day: 2 Home Medications - Allergies Allergies/Adverse Reactions: Allergies Allergy/AdvReac Type Severity Reaction Status Date / Time Penicillins Allergy Verified 03/20/19 11:41 shellfish derived Allergy Verified 03/20/19 11:41 - Home Medications Home Medications: Ambulatory Orders Pantoprazole Sodium [Protonix -] 40 mg PO DAILY #30 tablet.ec 03/01/19 Phenytoin Na Extended [Dilantin -] 100 mg PO BID capsule 03/01/19 levETIRAcetam [Keppra -] 750 mg PO BID #180 tablet 03/01/19 Nortriptyline HCl [Pamelor -] 50 mg PO BID 03/20/19 Physical Exam Vital Signs: Vital Signs Temperature 98.2 F 03/21/19 08:50 Pulse Rate 98 H 03/21/19 08:50 Respiratory Rate 16 03/21/19 08:50 Blood Pressure 143/90 03/21/19 08:50 O2 Sat by Pulse Oximetry (%) 95 03/21/19 03:23 Labs: CBC, BMP 03/21/19 05:45 03/21/19 05:45 Assessment/Plan AUR Hematuria Plan: Renal and pelvic U/S NPO after mid night for Tomorrow Cystoscopy. will do UDS later.
[2019-03-21] MEDS ORDERED: IBUPROFEN 600 MG TABLET (FP) PO ONE (14:00)
--- NOTE | 2019-03-21 15:14 | EKG ---
Test Reason : Blood Pressure : / mmHG Vent. Rate : 092 BPM Atrial Rate : 092 BPM P-R Int : 152 ms QRS Dur : 098 ms QT Int : 368 ms P-R-T Axes : 047 -12 040 degrees QTc Int : 455 ms NORMAL SINUS RHYTHM POSSIBLE LEFT ATRIAL ENLARGEMENT LEFT VENTRICULAR HYPERTROPHY ABNORMAL ECG WHEN COMPARED WITH ECG OF 17-MAR-2019 10:27, NO SIGNIFICANT CHANGE WAS FOUND Confirmed by SALOMON LOPEZ MD ([id number]) on 03/21/2019 3:14:12 PM Referred By: Confirmed By:SALOMON LOPEZ MD
[2019-03-21] MEDS: OXYBUTYNIN CHLORIDE 5 MG TABLET PO SCH (15:17)
[2019-03-21] MEDS ORDERED: MECLIZINE HCL 12.5 MG TABLET PO PRN (18:56)
[2019-03-21 19:19] LABS: EPI CELLS 0.8 /HPF (0-5/HPF); HYALINE CASTS 0 /lpf (0-8); URINE APPEARANCE CLEAR; URINE BACTERIA 2.6 /hpf (NEGATIVE); URINE BILIRUBIN NEGATIVE (NEGATIVE); URINE COLOR YELLOW; URINE GLUCOSE (UA) NEGATIVE (NEGATIVE); URINE KETONE NEGATIVE (NEGATIVE); URINE LEUK ESTERASE NEGATIVE (NEGATIVE); URINE NITRITE NEGATIVE (NEGATIVE); URINE PROTEIN NEGATIVE (NEGATIVE); URINE RBC 17 /hpf (0-4); URINE UROBILINOGEN 0.2 mg/dL (0.2-1.0); URINE WBC 1 /hpf (0-5)
[2019-03-21] MEDS ORDERED: diphenhydrAMINE HCL 25 MG CAPSULE (FP) PO ONE (21:22)
[2019-03-21] MEDS: ASPIRIN 81 MG CHEWABLE TABLETS PO SCH (21:37)
--- NOTE | 2019-03-22 09:58 | PN ---
Progress Note (short form) - Note Progress Note: 43 year old male history of Hypertension, Depression, Anxiety, Epilepsy( last seizure in 2019 unprovoked). He is on keppra 750 mg po bid and dilantin 100 m gpo bid. Patient also takes pamelor 50 mg po bid for tension headahce. He did have mri recently and it was unremarkable. He came with severe vertigo sensation and leading to double vision when he moving his head and with severe vertigo. Today he is much better ,but still having vertigo on moving head. He is feeling much better, waiting for cystoscopy . 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 Severe vertigo sensation , most likley bppv, patient has normal ct head and given his syptoms of double vision , he is much better and dialntin was very high on dilantin 200 mg ? took large dose by mistake Plan: stop dilantin and increase keppra to 1500 mg po bid -PT -his syptoms are much improved. -He can be discharged home from neurological point of view - no need to keep him in hospital for mri, can be done outpatient if needed Thanking you so much Zander Roger MD
[2019-03-22] MEDS: levETIRAcetam 500 MG TABLET (FP) PO SCH ×2 (10:52→21:19)
[2019-03-22] MEDS: PANTOPRAZOLE 40 MG TABLET PO SCH (10:54)
[2019-03-22] MEDS: OXYBUTYNIN CHLORIDE 5 MG TABLET PO SCH (10:55)
[2019-03-22] MEDS ORDERED: MIDAZOLAM HCL 2 MG/2 ML SINGLE DOSE VIAL ONE (11:01)
--- NOTE | 2019-03-22 11:50 | PN ---
DATE OF VISIT: DATE OF DICTATION: 03/22/2019 Patient is a 43-year-old male admitted with blurry vision, history of epilepsy. Patient developed acute urinary retention. Multiple attempts at placement of a Orgers were unsuccessful; therefore, Urology was called in, and an 18-Kiswahili Coude tip with a mandarin wire passed, and greater than 400 mL of clear, yellow urine was drained. The patient does have history of seizure disorder, dyslipidemia, and high blood pressure. He does smoke cigarettes. He denies any illicit drug use. He is allergic to PENICILLIN and SHELLFISH. His white count is 5.2, hemoglobin 14.9, hematocrit 42.7. BUN 91, creatinine 0.8. A renal ultrasound revealed normal upper tracts, a thickened bladder with an enlarged prostate. The patient patient's urine culture is pending. Physical exam revealed a 2+, firm, nontender prostate. Rogers is patent. Urine is clear. Plan is will go for cystoscopy, possible prostate vaporization if obstruction is found. This was explained to patient in detail, and he agrees. Arabella [id number]
[2019-03-22] MEDS ORDERED: KETOROLAC TROMETHAMINE 30 MG/1 ML VIAL ONE (12:31)
[2019-03-22] MEDS ORDERED: DEXAMETHASONE SOD PHOSPHATE 4 MG/1 ML VIAL ONE (12:31)
[2019-03-22] MEDS ORDERED: PROPOFOL 20 ML ONE (12:40)
[2019-03-22] MEDS ORDERED: LIDOCAINE HCL/PF 2% SDV 5ML VIAL ONE (12:40)
--- NOTE | 2019-03-22 12:56 | OP ---
Operative Note - Note: Operative Date: 03/22/19 Pre-Operative Diagnosis: bph with obstruction Operation: turp/tuvp Findings: trilobar hypertrophy and trabeculated bladder Post-Operative Diagnosis: Same as Pre-op Surgeon: Grabiel Jamison Anesthesia: General Specimens Removed: prostate chips, urine Estimated Blood Loss (mls): 20 Drains & Tubes with Location: 24f 30cc cruz Drains, Volume Out (mls): 0 Blood Volume Replaced (mls): 0 Fluid Volume Replaced (mls): 0 Operative Report Dictated: Yes
[2019-03-22] MEDS ORDERED: TAMSULOSIN HCL 0.4 MG CAP PO ONE (12:59)
[2019-03-22] MEDS: ASPIRIN 81 MG CHEWABLE TABLETS PO SCH (14:00)
[2019-03-22] MEDS: HEPARIN NA (PORCINE) 5,000 UNITS/ML 1ML VIAL SQ SCH ×2 (14:00→21:18)
--- NOTE | 2019-03-22 14:05 | OP ---
DATE OF OPERATION: 03/22/2019 PREOPERATIVE DIAGNOSIS: Acute urinary retention, history of prostatism. POSTOPERATIVE DIAGNOSIS: Benign prostatic hypertrophy, trilobar hypertrophy with obstruction, grade 2 trabeculated bladder. OPERATIVE PROCEDURE: Cystourethroscopy, transurethral resection and transurethral vaporization of prostate. ANESTHESIA: General. DESCRIPTION OF PROCEDURE: Under above-stated anesthesia, patient is prepped and draped in the usual sterile manner. He is placed in the dorsal lithotomy position. Cystoscopy revealed a normal anterior urethra. Prostatic urethra revealed trilobar hypertrophy of the prostate with lateral lobe kissing. The bladder revealed a grade 2-3 trabeculation. No lesions or calculi were seen. A bipolar PlasmaButton was introduced. The prostate was vaporized in the usual fashion. Excess chips were resected. Again, hemostasis was secured with electrocoagulation. Prostate chips were evacuated with an [employer] evacuator. The bladder was emptied. Scope was removed. A 24-Moroccan 30-mL Rogers was inserted. This was connected to a leg bag. The patient tolerated the procedure well. He returned to the recovery room in good condition. Arabella [id number]
--- NOTE | 2019-03-22 14:27 | PN ---
Progress Note, Physician Chief Complaint: AWAKE ALERT TRANSFERRING TO O.R. FOR CYSTOSCOPY DENIES FEVER OR CHILLS NPO MALAVE IN PLACE - Current Medication List Current Medications: Active Medications Acetaminophen (Tylenol -) 325 mg PO Q4H PRN PRN Reason: PAIN 1-5 POST OP Stop: 03/23/19 12:58 Aspirin (Asa -) 81 mg PO DAILY [facility] Last Admin: 03/21/19 21:37 Dose: 81 mg Heparin Sodium (Porcine) (Heparin -) 5,000 unit SQ BID [facility] Last Admin: 03/21/19 21:37 Dose: 5,000 unit Levetiracetam (Keppra -) 1,500 mg PO BID [facility] Last Admin: 03/22/19 10:52 Dose: 1,500 mg Levofloxacin (Levaquin -) 500 mg PO DAILY@0600 [facility] Stop: 03/23/19 10:01 Meclizine HCl (Antivert -) 12.5 mg PO Q12H PRN PRN Reason: DIZZINESS Oxybutynin Chloride (Ditropan -) 10 mg PO DAILY [facility] Last Admin: 03/22/19 10:55 Dose: 10 mg Oxycodone HCl (Roxicodone -) 5 mg PO Q4H PRN PRN Reason: PAIN 1-5 POST OP Stop: 03/23/19 12:58 Pantoprazole Sodium (Protonix -) 40 mg PO DAILY [facility] Last Admin: 03/22/19 10:54 Dose: 40 mg - Objective Vital Signs: Vital Signs Temperature 97.8 F 03/22/19 13:05 Pulse Rate 72 03/22/19 13:50 Respiratory Rate 14 03/22/19 13:50 Blood Pressure 131/94 03/22/19 13:50 O2 Sat by Pulse Oximetry (%) 97 03/22/19 13:50 Constitutional: Yes: Mild Distress Cardiovascular: Yes: Regular Rate and Rhythm Respiratory: Yes: WNL Gastrointestinal: Yes: Soft Genitourinary: Yes: Malave Present Musculoskeletal: Yes: WNL Neurological: Yes: Pre-Existing Deficit Labs: CBC, BMP 03/21/19 05:45 03/21/19 05:45 Problem List - Problems (1) Urine retention Code(s): R33.9 - RETENTION OF URINE, UNSPECIFIED (2) HTN (hypertension) Code(s): I10 - ESSENTIAL (PRIMARY) HYPERTENSION (3) Seizure Code(s): R56.9 - UNSPECIFIED CONVULSIONS Assessment/Plan MEDICALLY CLEARED FOR CYSTOSCOPY CAN START DIET AFTER PROCEDURE DVT PROPHYLAXIS OOB TO CHAIR PT EVAL DC MALAVE WHEN CLEARS SEIZURE PRECAUTION
[2019-03-22] MEDS: oxyCODONE HCL 5 MG TABLET PO PRN ×2 (15:50→21:18)
[2019-03-22] MEDS: ACETAMINOPHEN 325 MG TABLET (FP) PO PRN ×2 (17:57→21:18)
--- NOTE | 2019-03-22 21:57 | HOSP ---
Subjective - Review of Symptoms Events since last encounter: hospitalist encounter Notified via microblog by the RN, that the patient reports having left sided chest pain. Was asked to assess. Arrived to bedside, patient is AAOx3, Estonian speaking, IntroNet line used # [id number]. Patient reports having sharp L-sided chest pain non radiating without SOB or diaphoresis. Patient denies CP at present. PE performed see EMR. Assessment: The patient is a 43 year old male, with a significant past medical history of hypertension, depression, anxiety, and epilepsy, who presents to the emergency department with 3 days of dizziness and diplopia. Admitted for Diplopia, Vertigo Plan: EKG- stat Troponin- stat Cardiovascular: Yes: Chest Pain Physical Examination Vital Signs: Vital Signs Temperature 97.3 F L 03/22/19 18:00 Pulse Rate 93 H 03/22/19 18:00 Respiratory Rate 19 03/22/19 18:00 Blood Pressure 143/87 03/22/19 18:00 O2 Sat by Pulse Oximetry (%) 95 03/22/19 14:20 Constitutional: Yes: Well Nourished, Anxious Eyes: Yes: WNL, Conjunctiva Clear, EOM Intact, PERRL HENT: Yes: WNL, Atraumatic, Normocephalic Neck: Yes: WNL, Supple, Trachea Midline Cardiovascular: Yes: Regular Rate and Rhythm, S1, S2, Other (chest pain reproducible to palpation) Respiratory: Yes: WNL, Regular, CTA Bilaterally Gastrointestinal: Yes: WNL, Normal Bowel Sounds, Soft Edema: No Peripheral Pulses WNL: Yes Neurological: Yes: WNL, Alert, Oriented ...Motor Strength: WNL Psychiatric: Yes: WNL, Alert, Oriented Labs: CBC, BMP 03/21/19 05:45 03/21/19 05:45 Hospitalist Encounter Outcome: EKG reviewed- NSR with LVH QTc 466- no change compared to prior tracing Troponin I- < 0.02
[2019-03-23] MEDS: ACETAMINOPHEN 325 MG TABLET (FP) PO PRN ×2 (01:00→09:37)
[2019-03-23] MEDS: oxyCODONE HCL 5 MG TABLET PO PRN ×2 (01:01→09:39)
[2019-03-23 07:01] LABS: HEMATOCRIT 42.4 % (35.4-49); HEMOGLOBIN 14.7 GM/dL (11.7-16.9); MCH 31.6 pg (25.7-33.7); MCHC 34.8 g/dl (32.0-35.9); MEAN CELL VOLUME 90.9 fl (80-96); MEAN PLT VOLUME 9.2 fl (7.5-11.1); PLATELET COUNT 212 K/MM3 (134-434); RBC 4.66 M/mm3 (4.00-5.60); RDW 13.5 % (11.9-15.9); WHITE BLOOD COUNT 10.7 K/mm3 (4.0-10.0)
[2019-03-23 07:37] LABS: ALBUMIN 3.5 g/dl (3.4-5.0); BILIRUBIN,TOTAL 0.3 mg/dL (0.2-1); CALCIUM 8.9 mg/dL (8.5-10.1); CREATININE 0.9 mg/dL (0.55-1.3); POTASSIUM 4.1 mmol/L (3.5-5.1); TOT PROT 6.6 g/dl (6.4-8.2)
[2019-03-23] MEDS ORDERED: PT OWN MED DRAWER 7, Y5N ONE (09:17)
[2019-03-23] MEDS: levETIRAcetam 500 MG TABLET (FP) PO SCH ×2 (09:34→21:26)
[2019-03-23] MEDS: HEPARIN NA (PORCINE) 5,000 UNITS/ML 1ML VIAL SQ SCH ×2 (09:34→21:26)
[2019-03-23] MEDS: ASPIRIN 81 MG CHEWABLE TABLETS PO SCH (09:34)
[2019-03-23] MEDS: PANTOPRAZOLE 40 MG TABLET PO SCH (09:34)
[2019-03-23] MEDS: OXYBUTYNIN CHLORIDE 5 MG TABLET PO SCH (09:37)
--- NOTE | 2019-03-23 10:40 | PN ---
Progress Note, Physician - Current Medication List Current Medications: Active Medications Acetaminophen (Tylenol -) 325 mg PO Q4H PRN PRN Reason: PAIN 1-5 POST OP Stop: 03/23/19 12:58 Last Admin: 03/23/19 09:37 Dose: 325 mg Aspirin (Asa -) 81 mg PO DAILY [facility] Last Admin: 03/23/19 09:34 Dose: 81 mg Heparin Sodium (Porcine) (Heparin -) 5,000 unit SQ BID [facility] Last Admin: 03/23/19 09:34 Dose: 5,000 unit Levetiracetam (Keppra -) 1,500 mg PO BID [facility] Last Admin: 03/23/19 09:34 Dose: 1,500 mg Meclizine HCl (Antivert -) 12.5 mg PO Q12H PRN PRN Reason: DIZZINESS Oxybutynin Chloride (Ditropan -) 10 mg PO DAILY [facility] Last Admin: 03/23/19 09:37 Dose: 10 mg Oxycodone HCl (Roxicodone -) 5 mg PO Q4H PRN PRN Reason: PAIN 1-5 POST OP Stop: 03/23/19 12:58 Last Admin: 03/23/19 09:39 Dose: 5 mg Pantoprazole Sodium (Protonix -) 40 mg PO DAILY [facility] Last Admin: 03/23/19 09:34 Dose: 40 mg - Objective Vital Signs: Vital Signs Temperature 98.8 F 03/23/19 08:25 Pulse Rate 91 H 03/23/19 08:25 Respiratory Rate 18 03/23/19 08:25 Blood Pressure 120/80 03/23/19 08:25 O2 Sat by Pulse Oximetry (%) 95 03/22/19 21:00 Cardiovascular: Yes: Regular Rate and Rhythm Respiratory: Yes: Regular, CTA Bilaterally Gastrointestinal: Yes: Normal Bowel Sounds, Soft Genitourinary: Yes: Rogers Present, Hematuria Labs: CBC, BMP 03/23/19 05:52 03/23/19 05:52 Assessment/Plan - Problems (1) Diplopia Assessment/Plan: -Neurology consult -Opthomology consult Code(s): H53.2 - DIPLOPIA (2) Vertigo Assessment/Plan: -Neurology consult -EEG pending -Head CT scan shows no evidence of a focal intracranial lesion or hemorrhage -Brain MRI -fall precaution -tele monitoring -meclizine prn Code(s): R42 - DIZZINESS AND GIDDINESS (3) HTN (hypertension) Assessment/Plan: -low Na diet -monitor BP Code(s): I10 - ESSENTIAL (PRIMARY) HYPERTENSION (4) Seizure Assessment/Plan: -Keppra -OFF dilantin -Neurology on board -seizure precaution -keppra level pending -EEG ordered Code(s): R56.9 - UNSPECIFIED CONVULSIONS (5) Urine retention Assessment/Plan: -Rogers in place pink urine -Urology consult Operative Date: 03/22/19 Pre-Operative Diagnosis: bph with obstruction Operation: turp/tuvp Findings: trilobar hypertrophy and trabeculated bladder Post-Operative Diagnosis: Same as Pre-op Surgeon: Grabiel Jamison Code(s): R33.9 - RETENTION OF URINE, UNSPECIFIED
--- NOTE | 2019-03-23 17:06 | EKG ---
Test Reason : Blood Pressure : / mmHG Vent. Rate : 087 BPM Atrial Rate : 087 BPM P-R Int : 150 ms QRS Dur : 094 ms QT Int : 388 ms P-R-T Axes : 042 -08 046 degrees QTc Int : 466 ms NORMAL SINUS RHYTHM MINIMAL VOLTAGE CRITERIA FOR LVH, MAY BE NORMAL VARIANT BORDERLINE ECG WHEN COMPARED WITH ECG OF 20-MAR-2019 13:53, NO SIGNIFICANT CHANGE WAS FOUND Confirmed by DARRYL CALLE, VICKY ([id number]) on 03/23/2019 5:06:16 PM Referred By: Confirmed By:VICKY ANDREWS MD
[2019-03-24] MEDS ORDERED: ACETAMINOPHEN 325 MG TABLET (FP) PO PRN (00:53)
[2019-03-24] MEDS ORDERED: oxyCODONE HCL 5 MG TABLET PO PRN (00:53)
[2019-03-24] MEDS: HEPARIN NA (PORCINE) 5,000 UNITS/ML 1ML VIAL SQ SCH ×2 (09:19→21:43)
[2019-03-24] MEDS: ASPIRIN 81 MG CHEWABLE TABLETS PO SCH (09:26)
[2019-03-24] MEDS: OXYBUTYNIN CHLORIDE 5 MG TABLET PO SCH (09:26)
[2019-03-24] MEDS: levETIRAcetam 500 MG TABLET (FP) PO SCH ×2 (09:26→21:43)
[2019-03-24] MEDS: PANTOPRAZOLE 40 MG TABLET PO SCH (09:26)
--- NOTE | 2019-03-24 10:02 | PN ---
Progress Note, Physician - Current Medication List Current Medications: Active Medications Acetaminophen (Tylenol -) 650 mg PO Q6H PRN PRN Reason: PAIN LEVEL 4 - 6 Aspirin (Asa -) 81 mg PO DAILY [facility] Last Admin: 03/24/19 09:26 Dose: 81 mg Heparin Sodium (Porcine) (Heparin -) 5,000 unit SQ BID [facility] Last Admin: 03/24/19 09:19 Dose: 5,000 unit Levetiracetam (Keppra -) 1,500 mg PO BID [facility] Last Admin: 03/24/19 09:26 Dose: 1,500 mg Meclizine HCl (Antivert -) 12.5 mg PO Q12H PRN PRN Reason: DIZZINESS Oxybutynin Chloride (Ditropan -) 10 mg PO DAILY [facility] Last Admin: 03/24/19 09:26 Dose: 10 mg Oxycodone HCl (Roxicodone -) 5 mg PO Q6H PRN PRN Reason: PAIN LEVEL 6-10 Last Admin: 03/24/19 01:03 Dose: 5 mg Pantoprazole Sodium (Protonix -) 40 mg PO DAILY [facility] Last Admin: 03/24/19 09:26 Dose: 40 mg - Objective Vital Signs: Vital Signs Temperature 98.5 F 03/24/19 08:00 Pulse Rate 81 03/24/19 08:00 Respiratory Rate 18 03/24/19 08:00 Blood Pressure 128/77 03/24/19 08:00 O2 Sat by Pulse Oximetry (%) 96 03/23/19 20:13 Cardiovascular: Yes: Regular Rate and Rhythm Respiratory: Yes: Regular, CTA Bilaterally Gastrointestinal: Yes: Normal Bowel Sounds, Soft Genitourinary: Yes: Cruz Present, Hematuria Labs: CBC, BMP 03/23/19 05:52 03/23/19 05:52 Assessment/Plan - Problems (1) Diplopia Assessment/Plan: -Neurology consult -Opthomology consult -MRI NAD Code(s): H53.2 - DIPLOPIA (2) Vertigo Assessment/Plan: -Neurology consult -EEG pending -Head CT scan shows no evidence of a focal intracranial lesion or hemorrhage -Brain MRI -fall precaution -tele monitoring -meclizine prn Code(s): R42 - DIZZINESS AND GIDDINESS (3) HTN (hypertension) Assessment/Plan: -low Na diet -monitor BP Code(s): I10 - ESSENTIAL (PRIMARY) HYPERTENSION (4) Seizure Assessment/Plan: -Keppra -OFF dilantin -Neurology on board -seizure precaution -keppra level pending -EEG ordered Code(s): R56.9 - UNSPECIFIED CONVULSIONS (5) Urine retention Assessment/Plan: -Cruz in place pink urine--dc cruz in am -Urology consult Operative Date: 03/22/19 Pre-Operative Diagnosis: bph with obstruction Operation: turp/tuvp Findings: trilobar hypertrophy and trabeculated bladder Post-Operative Diagnosis: Same as Pre-op Surgeon: Grabiel Jamison Code(s): R33.9 - RETENTION OF URINE, UNSPECIFIED
[2019-03-24 10:29] LABS: BASO % 0.7 % (0-2.0); EOS % 1.1 % (0-4.5); HEMATOCRIT 45.6 % (35.4-49); HEMOGLOBIN 15.4 GM/dL (11.7-16.9); LYMPH % 15.4 % (8-40); MCHC 33.8 g/dl (32.0-35.9); MEAN CELL VOLUME 91.8 fl (80-96); MEAN PLT VOLUME 9.4 fl (7.5-11.1); MONO % 4.2 % (3.8-10.2); NEUT % 78.6 % (42.8-82.8); PLATELET COUNT 221 K/MM3 (134-434); RBC 4.97 M/mm3 (4.00-5.60); RDW 13.7 % (11.9-15.9); WHITE BLOOD COUNT 11.4 K/mm3 (4.0-10.0)
[2019-03-24] MEDS ORDERED: MELATONIN 5 MG TABLETS PO PRN (21:13)
--- NOTE | 2019-03-25 08:33 | DS ---
Physical Examination Vital Signs: Vital Signs Temperature 97.9 F 03/25/19 06:00 Pulse Rate 86 03/25/19 06:00 Respiratory Rate 18 03/25/19 06:00 Blood Pressure 120/80 03/25/19 06:00 O2 Sat by Pulse Oximetry (%) 95 03/24/19 20:30 Findings/Remarks: AWAKE ALERT FEELS GOOD Constitutional: Yes: No Distress Cardiovascular: Yes: Regular Rate and Rhythm Respiratory: Yes: WNL Gastrointestinal: Yes: WNL Musculoskeletal: Yes: Muscle Weakness Edema: No Integumentary: Yes: WNL Wound/Incision: Yes: Clean/Dry Neurological: Yes: Pre-Existing Deficit Labs: CBC, BMP 03/24/19 09:55 03/23/19 05:52 Discharge Summary Problems reviewed: Yes Reason For Visit: DIPLOPIA VERTIGO Current Active Problems Diplopia (Acute) Urine retention (Acute) Vertigo (Acute) Procedures: Principal: TURP/MRI BRAIN Hospital Course: ADMITTED FOR URINARY RETENTION REQUIRING MALAVE PLACEMENT AND TURP WITH . MALAVE REMOVED TODAY CAN FOLLOW UP WITH OUTPATIENT. MRI BRAIN SHOWS NO SIGNIFICANT CHANGE FROM PREVIOUS AND NO ACUTE CHANGES. Plan of Treatment: DC MALAVE, MONITOR OUTPUT F/U TOMORROW Goals: SEE YOUR UROLOGIST DR GERALDINE MCCLURE TOMORROW Condition: Improved - Instructions Diet, Activity, Other Instructions: FOLLOW WITH YOUR PRIMARY DOCTOR AND UROLOGIST TOMORROW RETURN TO E.D. IF YOU ARE NOT VOIDING URINE Referrals: Israel Taylor [Primary Care Provider] - Disposition: VNS/HOME HEALTH CARE - Home Medications Comprehensive Discharge Medication List: Ambulatory Orders Pantoprazole Sodium [Protonix -] 40 mg PO DAILY #30 tablet.ec 03/01/19 Phenytoin Na Extended [Dilantin -] 100 mg PO BID capsule 03/01/19 levETIRAcetam [Keppra -] 750 mg PO BID #180 tablet 03/01/19 Nortriptyline HCl [Pamelor -] 50 mg PO BID 03/20/19 Prescription Drug Monitoring Program (I-STOP) results: I-STOP not reviewed
[2019-03-25] MEDS ORDERED: PT OWN MED DRAWER 7, Y5N ONE (09:01)
[2019-03-25] MEDS: PANTOPRAZOLE 40 MG TABLET PO SCH (09:14)
[2019-03-25] MEDS: ASPIRIN 81 MG CHEWABLE TABLETS PO SCH (09:14)
[2019-03-25] MEDS: levETIRAcetam 500 MG TABLET (FP) PO SCH (09:14)
[2019-03-25] MEDS: HEPARIN NA (PORCINE) 5,000 UNITS/ML 1ML VIAL SQ SCH (09:15)
[2019-03-25] MEDS: OXYBUTYNIN CHLORIDE 5 MG TABLET PO SCH (09:15)
[2019-03-25 09:22] VITALS: BP 127/89; PULSE 77; TEMP 98.3
--- NOTE | 2019-03-25 19:08 | PATH ---
Surgical Pathology Report Patient Name: JELENA CHAPMAN [facility]. Rec. #: [id number] /Age/Gender: 1975 (Age: 43) / M Account: [id number] Location: [facility] Taken: 03/22/2019 Received: 03/22/2019 Reported: 03/25/2019 Physicians: Arabella Story M.D. Specimen(s) Received PROSTATE CHIPS Clinical History Acute urinary retention, BPH Final Diagnosis PROSTATE CHIPS, TRANSURETHRAL VAPORIZATION OF PROSTATE: FRAGMENTS OF BENIGN FIBROMUSCULAR TISSUE, STROMA, UROTHELIAL AND GLANDULAR PARENCHYMA WITH MARKED CAUTERY ARTIFACT. NO DEFINITIVE PROSTATIC GLANDULAR COMPONENT IDENTIFIED. Electronically Signed Ana M Oneil M.D. Gross Description Received in formalin labeled "prostate chips," is a less than 1 g aggregate of 3 spivey soft tissue fragments ranging from 0.3-0.8 cm in greatest dimension, consistent with prostate chips. The specimen is submitted in toto in one cassette. 03/22/2019 [facility]03/22/2019
== END 2019-03-25 13:48 | disposition home health service (06) | DRG 482 ==
LOC: JER 11:32 → JERBED 15:32 → J6S 21:39 → J4S 03-21 02:33
PROVIDERS: ADMIT Family Medicine; ATTEND Family Medicine
PROC: 0T9B70Z Drainage of Bladder with Drainage Device, Via Natural or Artificial Opening (ICD-10-PCS; 2019-03-21)
PROC: 0V508ZZ Destruction of Prostate, Via Natural or Artificial Opening Endoscopic (ICD-10-PCS; 2019-03-22)
PROC: 0VB08ZZ Excision of Prostate, Via Natural or Artificial Opening Endoscopic (ICD-10-PCS; principal; 2019-03-22 13:00)
DX: N40.0 Benign prostatic hyperplasia without lower urinary tract symptoms (principal); R33.9 Retention of urine, unspecified; R31.9 Hematuria, unspecified; H53.2 Diplopia; R42 Dizziness and giddiness; I10 Essential (primary) hypertension; R07.9 Chest pain, unspecified; G40.909 Epilepsy, unspecified, not intractable, without status epilepticus; F41.8 Other specified anxiety disorders; N13.8 Other obstructive and reflux uropathy; E78.5 Hyperlipidemia, unspecified; F17.210 Nicotine dependence, cigarettes, uncomplicated
CPT/HCPCS: 36415; 70450-TC; 70552-TC; 76000-TC-FY; 76775-TC; 76856-TC; 80053; 80177; 80185; 81003; 83735; 84100; 84443; 84484; 85025; 85027; 87086; 88305-TC; 93005; 93010; 94010; 94760; 97116-GP; 97161-GP; 99285-25; A9579; J1644

== ENCOUNTER 2019-03-30 22:25 | Emergency (ER) | payer OTHER ==
[2019-03-30 22:29] VITALS: TEMP 97.8; BMI 21.7
[2019-03-30 23:59] VITALS: BP 151/105; PULSE 86
[2019-03-30 23:59] LABS: BASO % 0.9 % (0-2.0); HEMATOCRIT 43.6 % (35.4-49); HEMOGLOBIN 14.9 GM/dL (11.7-16.9); LYMPH % 24.2 % (8-40); MCH 31.2 pg (25.7-33.7); MCHC 34.3 g/dl (32.0-35.9); MEAN CELL VOLUME 90.9 fl (80-96); MEAN PLT VOLUME 8.9 fl (7.5-11.1); MONO % 7.1 % (3.8-10.2); NEUT % 65.8 % (42.8-82.8); PLATELET COUNT 291 K/MM3 (134-434); RDW 13.8 % (11.9-15.9); WHITE BLOOD COUNT 10.3 K/mm3 (4.0-10.0)
[2019-03-31] MEDS ORDERED: MECLIZINE HCL 25 MG TABLET (FP) PO ONE (00:14)
[2019-03-31] MEDS ORDERED: MECLIZINE HCL 25 MG TABLET (FP) ONE (00:15)
[2019-03-31 00:30] LABS: ALBUMIN 3.8 g/dl (3.4-5.0); BILIRUBIN,TOTAL 0.2 mg/dL (0.2-1); BLOOD UREA NITROGEN 14.6 mg/dL (7-18); CALCIUM 9.2 mg/dL (8.5-10.1); CREATININE 0.8 mg/dL (0.55-1.3); POTASSIUM 3.9 mmol/L (3.5-5.1)
--- NOTE | 2019-03-31 00:45 | PDOC ---
History of Present Illness - General Chief Complaint: Lightheaded Stated Complaint: HOT FLASH/ DRY MOUTH Time Seen by Provider: 03/30/19 22:56 History Source: Patient Exam Limitations: No Limitations Past History - Past Medical History Allergies/Adverse Reactions: Allergies Allergy/AdvReac Type Severity Reaction Status Date / Time Penicillins Allergy Verified 03/30/19 22:29 shellfish derived Allergy Verified 03/30/19 22:29 Home Medications: Ambulatory Orders Pantoprazole Sodium [Protonix -] 40 mg PO DAILY #30 tablet.ec 03/01/19 Phenytoin Na Extended [Dilantin -] 100 mg PO BID capsule 03/01/19 levETIRAcetam [Keppra -] 750 mg PO BID #180 tablet 03/01/19 Nortriptyline HCl [Pamelor -] 50 mg PO BID 03/20/19 Acetaminophen [Tylenol .Regular Strength -] 650 mg PO Q6H PRN tablet 03/25/19 Aspirin [ASA -] 81 mg PO DAILY #30 tab.chew 03/25/19 Meclizine HCl [Antivert -] 12.5 mg PO Q12H PRN #30 tablet 03/25/19 Melatonin 5 mg PO HS PRN #30 tab 03/25/19 Oxybutynin Chloride [Ditropan -] 10 mg PO DAILY #30 tablet 03/25/19 levETIRAcetam [Keppra -] 1,500 mg PO BID #240 tablet 03/25/19 COPD: No DVT: No HTN: Yes Hypercholesterolemia: Yes Psychiatric Problems: Yes (DEPRESSION,ANXIETY) Seizures: Yes (EPILEPSY) - Immunization History Immunization Up to Date: Yes - Psycho Social/Smoking Cessation Hx Smoking History: Never smoked Have you smoked in the past 12 months: Yes Number of Cigarettes Smoked Daily: 2 'Breaking Loose' booklet given: 02/27/19 Hx Alcohol Use: No Drug/Substance Use Hx: No Substance Use Type: None Hx Substance Use Treatment: No *Physical Exam - Vital Signs Last Vital Signs Temp Pulse Resp BP Pulse Ox 97.8 F 86 18 151/105 H 95 03/30/19 22:27 03/30/19 23:58 03/30/19 22:27 03/30/19 23:58 03/30/19 22:27 - Physical Exam General Appearance: No: Apparent Distress HEENT: positive: [place], Other (+experiences dizziness when attempting to move his eyes left or right) Respiratory/Chest: positive: Lungs Clear, Normal Breath Sounds. negative: Respiratory Distress Cardiovascular: positive: Regular Rhythm, Regular Rate, S1, S2. 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8 Phenytoin 33.9 03/30/19 23:40 RBC 4.80 MCV 90.9 MCHC 34.3 RDW 13.8 MPV 8.9 Neutrophils % 65.8 Lymphocytes % 24.2 D Monocytes % 7.1 Eosinophils % 2.0 D Basophils % 0.9 - Medications Given in the ED: ED Medications Discontinued Medications Generic Name Dose Route Start Last Admin Trade Name Freq PRN Reason Stop Dose Admin Meclizine HCl 25 mg 03/31/19 00:14 03/31/19 00:17 Antivert - PO 03/31/19 00:15 25 mg ONCE ONE Administration Medical Decision Making - Medical Decision Making 43 y/o M hx of seizures (Keppra and Dilantin), HTN, HLD, anxiety, BPH s/p TURP , 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 Vertigo is worse with movements of head. Patient was recently from the hospital 03/25 for the same complaints. Mentions he felt fine after he was discharged but then the same sxs returned again today. Also takes Meclizine for vertigo and took 1 pill today but did not feel it helped (though states Meclizine helped in the hospital). Patient was seen by neurology last visit and had brain MRI done 03/23 which was normal. It was suggested that likely his vertigo is from the large dose in his Dilantin and per Dr. Anibal Roger's note, patient was advised to stop the Dilantin and increase the Keppra to 1500 mg BID. However, patient states he was not made aware of this. States he is taking ?200 mg of Dilantin TID and Keppra BID ( unsure of dose). Denies fever, sob, cp, abd pain, n/v, numbness/tingling/ weakness of extremities. Vertigo Plan: Labs, check dilantin and keppra levels, Meclizine 03/31/19 00:46 Labs reviewed Dilantin level still elevated Keppra level won't return today D/W Dr. Roman - agrees that vertigo is likely from the Dilantin; advised to have patient not take Dilantin tomorrow; then take Dilantin 200 mg BID and continue Keppra as usual Patient explained this in [place] States he understands Stable for dc 03/31/19 01:03 Discharge - Discharge Information Problems reviewed: Yes Clinical Impression/Diagnosis: Vertigo Condition: Stable Disposition: HOME - Admission No - Additional Discharge Information Prescription Drug Monitoring Program (I-STOP) results: I-STOP not reviewed - Follow up/Referral Referrals: Israel Taylor [Primary Care Provider] - Anibal Roger MD [Staff Physician] - 3 days - Patient Discharge Instructions Patient Printed Discharge Instructions: DI for Vertigo Additional Instructions: Thank you for choosing [facility]. It was a pleasure taking care of you. Please do not take your Dilantin on 03/31 Starting from 04/01, you may take Dilantin 200 mg TWICE A DAY Keep taking the Keppra as prescribed Your vertigo should resolve in 3 days Follow-up with neurologist in 3 days Return to the Emergency Department if your symptoms worsen or persist or have other concerning symptoms. Luis por elegir el [facility]. Fue un placer cuidar de ti. Por favor no tome barrios Dilantin el 03/31 A partir del 04/01, puede karyn Dilantin 200 mg DOS VECES AL DA Siga tomando Keppra segn lo prescrito. Barrios vrtigo debera resolverse en 3 gunn. Seguimiento con neurlogo en 3 gunn. Regrese al departamento de emergencias si zeus sntomas empeoran o persisten o si tiene otros sntomas preocupantes. Print Language: SLOV[place] - Post Discharge Activity
== END 2019-03-31 01:11 | disposition home or self-care (01) ==
LOC: JER 22:25
DX: R42 Dizziness and giddiness (principal); I10 Essential (primary) hypertension; E78.00 Pure hypercholesterolemia, unspecified; F41.8 Other specified anxiety disorders; F32.9 Major depressive disorder, single episode, unspecified; G40.909 Epilepsy, unspecified, not intractable, without status epilepticus; N40.0 Benign prostatic hyperplasia without lower urinary tract symptoms; Z98.890 Other specified postprocedural states
CPT/HCPCS: 36415; 80053; 80177; 80185; 85025; 99284-25

== ENCOUNTER 2020-11-16 13:00 | Emergency (ER) | payer OTHER ==
[2020-11-16 13:19] VITALS: BP 132/91; PULSE 107; TEMP 98.6; BMI 21.7
[2020-11-16] MEDS ORDERED: FAMOTIDINE 20 MG TABLET PO ONE (14:38)
[2020-11-16] MEDS ORDERED: SODIUM CHLORIDE 0.9% 500 ML INFUS.BAG IV ONE (14:39)
[2020-11-16] MEDS ORDERED: LIDOCAINE VISCOUS 2% ORAL/TOP 15 ML UNIT-DOSE CUP MM ONE (14:40)
[2020-11-16] MEDS ORDERED: FAMOTIDINE 20 MG TABLET ONE (14:55)
[2020-11-16] MEDS ORDERED: LIDOCAINE VISCOUS 2% ORAL/TOP 15 ML UNIT-DOSE CUP ONE (14:55)
[2020-11-16 15:39] LABS: BASO % 0.7 % (0-2.0); HEMATOCRIT 47.4 % (35.4-49); HEMOGLOBIN 16.3 GM/dL (11.7-16.9); LYMPH % 23.9 % (8-40); MCH 31.8 pg (25.7-33.7); MCHC 34.4 g/dl (32.0-35.9); MEAN CELL VOLUME 92.4 fl (80-96); MEAN PLT VOLUME 9.3 fl (7.5-11.1); MONO % 6.7 % (3.8-10.2); NEUT % 66.7 % (42.8-82.8); PLATELET COUNT 235 10^3/uL (134-434); RBC 5.14 M/mm3 (4.00-5.60); RDW 13.7 % (11.9-15.9); WHITE BLOOD COUNT 10.3 K/mm3 (4.0-10.0)
[2020-11-16 15:54] LABS: INR 0.86 (0.83-1.09); PROTHROMBIN TIME (PATIENT) 10.6 SEC (9.7-13.0)
[2020-11-16 16:04] LABS: CHLORIDE 108 mmol/L (98-107); SODIUM 141 mmol/L (136-145)
[2020-11-16 16:06] LABS: ALBUMIN 3.6 g/dl (3.4-5.0); ANION GAP 5 MMOL/L (8-16); CALCIUM 9.2 mg/dL (8.5-10.1); CO2 29 mmol/L (21-32); MAGNESIUM 2.3 mg/dL (1.8-2.4)
[2020-11-16 16:07] LABS: GLUCOSE,RANDOM 85 mg/dL (74-106)
[2020-11-16 16:10] LABS: CREATININE 0.8 mg/dL (0.55-1.3); SGOT/AST 27 U/L (15-37); SGPT/ALT 50 U/L (13-61)
[2020-11-16 16:11] LABS: BILIRUBIN,TOTAL 0.1 mg/dL (0.2-1); TOT PROT 7.2 g/dl (6.4-8.2)
[2020-11-16 16:12] LABS: ALK PHOS 111 U/L (45-117)
== END 2020-11-16 17:30 | disposition home or self-care (01) ==
LOC: JER 13:00
DX: R07.9 Chest pain, unspecified (principal)
CPT/HCPCS: 36415; 71045-TC-FY; 80053; 82550; 83690; 83735; 84484; 85025; 85610; 85730; 93005; 93010; 99285-25

== ENCOUNTER 2022-03-25 16:40 | Emergency (ER) | payer OTHER ==
[2022-03-25 16:50] VITALS: BP 141/99; PULSE 88; RESP 18; TEMP 98.3; BMI 23.6
[2022-03-25] MEDS ORDERED: IBUPROFEN 600 MG TABLET (FP) PO ONE ×2 (18:44→18:49)
== END 2022-03-25 19:30 | disposition home or self-care (01) ==
LOC: JER 16:40 → JERFT 16:40 → JER 19:30
DX: H92.02 Otalgia, left ear (principal)
CPT/HCPCS: 99283-25

== ENCOUNTER 2022-09-20 05:27 | Day surgery (SDC) | payer OTHER ==
[2022-09-16 16:04] VITALS: BMI 22.5
[2022-09-20 13:07] VITALS: BP 114/76; PULSE 96; RESP 27; TEMP 95.7
== END 2022-09-20 13:30 | disposition home or self-care (01) ==
LOC: JASU-ENDO 05:27
PROVIDERS: ATTEND Student in an Organized Health Care Education/Training Program
PROC: 0DBN8ZX Excision of Sigmoid Colon, Via Natural or Artificial Opening Endoscopic, Diagnostic (ICD-10-PCS; principal; 2022-09-20 12:30)
DX: Z12.11 Encounter for screening for malignant neoplasm of colon (principal)
CPT/HCPCS: 88305-TC

== ENCOUNTER 2023-01-08 07:00 | Emergency (ER) | payer OTHER ==
[2023-01-08 07:36] VITALS: BMI 23.2
[2023-01-08] MEDS ORDERED: ACETAMINOPHEN 1000 MG/100 ML BAG IVPB ONE (08:08)
[2023-01-08] MEDS ORDERED: METOCLOPRAMIDE HCL INJECTION 10 MG/2 ML VIAL IVPUSH ONE (08:08)
[2023-01-08] MEDS ORDERED: SODIUM CHLORIDE 0.9% 500 ML INFUS.BAG IV ONE (08:08)
[2023-01-08] MEDS ORDERED: ACETAMINOPHEN INJECTION 100 ML IVPB ONE (08:39)
[2023-01-08] MEDS ORDERED: METOCLOPRAMIDE HCL INJECTION 10 MG/2 ML VIAL ONE (08:39)
[2023-01-08 08:53] LABS: BASO % 0.8 % (0-2.0); EOS % 0.4 % (0-4.5); HEMOGLOBIN 14.7 GM/dL (11.7-16.9); MCH 31.4 pg (25.7-33.7); MCHC 34.1 g/dl (32.0-35.9); MEAN CELL VOLUME 92.2 fl (80-96); MEAN PLT VOLUME 8.4 fl (7.5-11.1); MONO % 4.2 % (3.8-10.2); NEUT % 75.6 % (42.8-82.8); PLATELET COUNT 244 10^3/uL (134-434); RBC 4.67 M/mm3 (4.00-5.60); RDW 13.9 % (11.9-15.9); WHITE BLOOD COUNT 10.5 K/mm3 (4.0-10.0)
[2023-01-08 09:16] LABS: POTASSIUM 4.2 mmol/L (3.5-5.1)
[2023-01-08 09:18] LABS: ALBUMIN 3.9 g/dl (3.4-5.0); CALCIUM 8.9 mg/dL (8.5-10.1); MAGNESIUM 2.1 mg/dL (1.8-2.4)
[2023-01-08 09:19] LABS: BLOOD UREA NITROGEN 15.5 mg/dL (7-18)
[2023-01-08 09:22] LABS: CREATININE 0.7 mg/dL (0.55-1.3)
[2023-01-08 09:23] LABS: BILIRUBIN,TOTAL 0.4 mg/dL (0.2-1); TOT PROT 7.1 g/dl (6.4-8.2)
[2023-01-08 13:07] VITALS: BP 126/93; PULSE 72; RESP 16; TEMP 97.9
== END 2023-01-08 13:07 | disposition home or self-care (01) ==
LOC: JER 07:00
PROC: 3E033NZ Introduction of Analgesics, Hypnotics, Sedatives into Peripheral Vein, Percutaneous Approach (ICD-10-PCS; principal; 2023-01-08)
PROC: 3E033GC Introduction of Other Therapeutic Substance into Peripheral Vein, Percutaneous Approach (ICD-10-PCS; 2023-01-08)
DX: R51.9 Headache, unspecified (principal); R42 Dizziness and giddiness; R89.2 Abnormal level of other drugs, medicaments and biological substances in specimens from other organs, systems and tissues; R07.89 Other chest pain; Z20.822 Contact with and (suspected) exposure to COVID-19
CPT/HCPCS: 0241U-QW; 36415; 80053; 80177; 80185; 83735; 84484; 85025; 93005; 93010; 99284-25

== ENCOUNTER 2023-07-11 09:59 | Emergency (ER) | payer OTHER ==
[2023-07-11 12:02] LABS: BASO % 0.3 % (0-2.0); HEMATOCRIT 41.6 % (35.4-49); HEMOGLOBIN 14.3 GM/dL (11.7-16.9); LYMPH % 18.7 % (8-40); MCH 31.3 pg (25.7-33.7); MCHC 34.5 g/dl (32.0-35.9); MEAN CELL VOLUME 90.9 fl (80-96); MEAN PLT VOLUME 8.7 fl (7.5-11.1); MONO % 4.2 % (3.8-10.2); NEUT % 75.8 % (42.8-82.8); PLATELET COUNT 211 10^3/uL (134-434); RBC 4.58 M/mm3 (4.00-5.60); RDW 14.6 % (11.9-15.9); WHITE BLOOD COUNT 12.9 K/mm3 (4.0-10.0)
[2023-07-11 12:07] LABS: INR 0.92 (0.83-1.09); PROTHROMBIN TIME (PATIENT) 10.6 SEC (9.7-13.0)
[2023-07-11 12:10] LABS: ACTIVATED PTT 26.7 SECONDS (25.2-36.5)
[2023-07-11 12:24] LABS: POTASSIUM 4.3 mmol/L (3.5-5.1)
[2023-07-11 12:25] LABS: ALBUMIN 3.5 g/dl (3.4-5.0); CALCIUM 8.8 mg/dL (8.5-10.1)
[2023-07-11 12:26] VITALS: BMI 20.4
[2023-07-11 12:28] LABS: BLOOD UREA NITROGEN 14.2 mg/dL (7-18)
[2023-07-11 12:30] LABS: CREATININE 0.7 mg/dL (0.55-1.3)
[2023-07-11 12:31] LABS: TOT PROT 6.5 g/dl (6.4-8.2)
[2023-07-11 12:32] LABS: BILIRUBIN,TOTAL 0.6 mg/dL (0.2-1)
[2023-07-11] MEDS ORDERED: valACYclovir HCL 500 MG TABLET (FP) ONE (13:26)
[2023-07-11] MEDS ORDERED: predniSONE 20 MG TABLET (UD) ONE (13:26)
[2023-07-11] MEDS: valACYclovir HCL 500 MG TABLET (FP) PO ONE (13:28)
[2023-07-11] MEDS: predniSONE 20 MG TABLET (UD) PO ONE (13:28)
[2023-07-11 16:57] VITALS: BP 116/81; PULSE 73; RESP 18; TEMP 97.6
[2023-07-11] MEDS: valACYclovir HCL 500 MG TABLET (FP) PO SCH (17:28)
[2023-07-11] MEDS ORDERED: levETIRAcetam 250 MG TABLET PO SCH (22:00)
[2023-07-11] MEDS ORDERED: valACYclovir HCL 500 MG TABLET (FP) PO SCH (22:00)
[2023-07-12] MEDS ORDERED: PARoxetine HCL 10 MG TABLET PO SCH (10:00)
[2023-07-12] MEDS ORDERED: TOPIRAMATE 25 MG TABLET PO SCH (10:00)
[2023-07-12] MEDS ORDERED: PHENYTOIN NA EXTENDED 100 MG CAPSULE (FP) PO SCH (10:00)
== END 2023-07-11 18:22 | disposition home or self-care (01) ==
LOC: JER 09:59 → JERBED 14:33 → UNDOADMOB 14:33 → JER 18:22
DX: G51.0 Bell's palsy (principal); H57.12 Ocular pain, left eye; R42 Dizziness and giddiness
CPT/HCPCS: 36415; 70450-TC; 70551-TC; 80053; 80061; 82550; 82962; 83036; 84484; 85025; 85610; 85730; 86850; 86900; 86901; 93005; 93010; 99285-25